=== PATIENT | male | born 1980 | race Caucasian/White ===

== ENCOUNTER → 2022-08-09 | Outpatient (CLI) | payer OTHER ==
[2022-08-09 18:30] LABS: Basophils # (A) 0.07 X 10*3/uL (0.00-0.10); Basophils % (A) 0.7 %; Eosinophils % (A) 7.3 %; HCT 41.9 % (39.6-50.0); HGB 14.1 g/dL (13.0-17.0); Immature Grans, Automated 0.2 %; Lymphocytes # (A) 2.09 X 10*3/uL (0.90-5.00); Lymphocytes % (A) 21.7 %; MCHC 33.7 g/dL (32.0-37.0); MCV 95.2 fL (80.0-97.0); Mean Platelet Volume 9.5 fL (9.5-12.2); Monocytes # (A) 0.56 X 10*3/uL (0.20-1.00); Monocytes % (A) 5.8 %; NRBC Per 100 WBC 0 /100 WBCS (0.0-0.0); Neutrophils # (A) 6.18 X 10*3/uL (1.80-7.70); Neutrophils % (A) 64.3 %; Platelet Count 337 X 10*3/uL (140-440); RDW 12.7 % (11.5-14.5); WBC 9.62 X 10*3/uL (4.50-10.00)
[2022-08-09 19:54] LABS: ALT 24 U/L (10-49); AST 17 U/L (14-35); Albumin 4.8 g/dL (3.8-4.9); Albumin/Globulin Ratio 2.09 (1.60-3.17); Alkaline Phosphatase 91 U/L (41-126); BUN/Creat Ratio 8.33 Ratio (12.00-20.00); Blood Urea Nitrogen 7.5 mg/dL (9.0-27.0); Carbon Dioxide 26.7 mmol/L (20.0-27.5); Chloride 100 mmol/L (96-109); Chol/HDL Ratio 3.64 Ratio; Globulin 2.3 g/dL (1.6-3.3); Glucose 91 mg/dL (70-110); LDL Cholesterol,Calculated 134.6 mg/dL (0.0-131.0); Non-African American GFR(CKD) 103.5 (60.0-200.0); Potassium 4.1 mmol/L (3.5-5.5); Sodium 140 mmol/L (135-145); Total Bilirubin <0.15 mg/dL (0.30-1.20); Total Protein 7.1 g/dL (6.2-8.2)
[2022-08-09 22:33] LABS: Urine Alcohol Negative (Negative); Urine Barbiturate Negative (Negative); Urine Cocaine Negative (Negative); Urine Methadone Negative (Negative); Urine Opiates Negative (Negative); Urine Phencyclidine Negative (Negative)
== END | disposition home or self-care (01) ==
LOC: LABWHC1 12:05
PROVIDERS: ATTEND Specialist
DX: Z79.899 Other long term (current) drug therapy (principal)
CPT/HCPCS: 36415; 80053; 80061; 80306; 83036; 84443; 85025

== ENCOUNTER 2023-07-08 15:07 | Observation (INO) | payer OTHER ==
[2023-07-08] MEDS ORDERED: SODIUM CHLORIDE 0.9% 500 ML 500 ML IV ONE (15:16)
[2023-07-08] MEDS ORDERED: SODIUM CHLORIDE 0.9% 1,000 ML IV STA (15:16)
--- NOTE | 2023-07-08 15:33 | ED ---
Altered Mental Status HPI - General Chief Complaint: Altered Mental Status Stated Complaint: Altered Mental Status Time Seen by Provider: 07/08/23 15:09 Source: patient, family, EMS, RN notes reviewed Mode of arrival: EMS Limitations: altered mental status - History of Present Illness Initial Comments: 43-year-old male with a history of bipolar and schizophrenia who is brought in by EMS due to confusion and altered mental status. He apparently is been [place] Unclear at this time he lives her. He denies any pain he however does not know what day it is what month it is or what year it is at this time. He denies alcohol he does admit to vaping using marijuana. He does admit to using psychiatric medications. No desire to hurt himself or anyone else apparently. He has no other complaints at this time. The patient and did come back to see the patient she is 1 called EMS to bring him in here. Patient was [place] to the aunt owns he was confused as to date and time and year which is not normal for him. He also seemed more confused on other aspects of questioning. There is a possibility he did not have his medications for some period of time he just got a prescription filled the last 1 or 2 days. He does have a history of alcoholism but no recent history of drinking. The patient's aunt believes he is possibly demonstrating some withdrawal-type. Additional information the patient's aunt does state that he had episodes of nausea vomiting yesterday. None today MD Complaint: altered mental status - Related Data Home Medications Medication Instructions Recorded Confirmed FLUoxetine HCL [PROzac] 80 mg PO DAILY 07/08/23 07/08/23 [place] Carbonate [Lithobid] 600 mg PO HS 07/08/23 07/08/23 QUEtiapine FUMARATE [SEROquel XR] 800 mg PO HS 07/08/23 07/08/23 QUEtiapine [SEROquel] 50 mg PO DAILY PRN 07/08/23 07/08/23 busPIRone HCL 20 mg PO TID 07/08/23 07/08/23 cloNIDine HCL [Catapres] 0.1 mg PO DAILY PRN 07/08/23 07/08/23 cloNIDine HCL [Kapvay] 0.2 mg PO HS 07/08/23 07/08/23 Allergies Allergy/AdvReac Type Severity Reaction Status Date / Time erythromycin base AdvReac Nausea & Verified 07/08/23 18:33 [From Erythrocin] Vomiting Review of Systems ROS Statement: Those systems with pertinent positive or pertinent negative responses have been documented in the HPI. ROS Other: All systems not noted in ROS Statement are negative. Past Medical History Past Medical History: No Reported History History of Any Multi-Drug Resistant Organisms: None Reported Past Surgical History: No Surgical Hx Reported Past Psychological History: Anxiety, Depression Smoking Status: Vaper Past Alcohol Use History: None Reported Past Drug Use History: Marijuana General Exam - General Exam Comments Initial Comments: This a well-developed well-nourished awake alert confused male Limitations: altered mental status General appearance: alert, in no apparent distress Head exam: Present: atraumatic, normocephalic, normal inspection Eye exam: Present: normal appearance, PERRL, EOMI. Absent: scleral icterus, conjunctival injection, periorbital swelling ENT exam: Present: mucous membranes dry Neck exam: Present: normal inspection, full ROM, other (No stridor JVD or bruits). Absent: tenderness, meningismus, lymphadenopathy Respiratory exam: Present: normal lung sounds bilaterally. Absent: respiratory distress, wheezes, rales, rhonchi, stridor Cardiovascular Exam: Present: regular rate, normal rhythm, normal heart sounds. Absent: systolic murmur, diastolic murmur, rubs, gallop, clicks GI/Abdominal exam: Present: soft, normal bowel sounds. Absent: distended, tenderness, guarding, rebound, rigid Rectal exam: Present: deferred Extremities exam: Present: full ROM, normal capillary refill, other (Very subtle bruised areas seen on the right antecubital space no open wound seen no definitive puncture wounds). Absent: tenderness, pedal edema, joint swelling, calf tenderness Back exam: Present: normal inspection Neurological exam: Present: alert, altered, CN II-XII intact. Absent: motor sensory deficit Psychiatric exam: Present: normal affect, normal mood Skin exam: Present: warm, dry, intact, normal color. Absent: rash Course Vital Signs 07/08/23 07/08/23 15:12 18:44 Temperature 98.3 F Pulse Rate 78 75 Respiratory 18 18 Rate Blood Pressure 147/108 149/90 O2 Sat by Pulse 98 98 Oximetry Medical Decision Making - Medical Decision Making I did discuss findings with the patient his mother and his aunt who was here earlier. Evaluation treatment of altered mental status lithium toxicity and dehydration. Patient does demonstrate evidence of hyperglycemia hypothyroidism medication may be the culprit. Patient be also seen by psychiatry and also by neurology. Also oral surgery will be placed on IV antibioticsWas pt. sent in by a medical professional or institution (, DIANE, UNDERWRITING MANAGER, urgent care, hospital, or longterm...) When possible be specific @ -No Did you speak to anyone other than the patient for history (EMS, parent, family, police, friend...)? What history was obtained from this source @ -His aunt and his mother Did you review nursing and triage notes (agree or disagree)? Why? @ -I reviewed and agree with nursing and triage notes Were old charts reviewed (outside hosp., previous admission, EMS record, old EKG, old radiological studies, urgent care reports/EKG's, longterm records)? Report findings @ -No old charts were reviewed Differential Diagnosis (chest pain, altered mental status, abdominal pain women, abdominal pain men, vaginal bleeding, weakness, fever, dyspnea, syncope, headache, dizziness, GI bleed, back pain, seizure, CVA, palpatations, mental health, musculoskeletal)? @ -CVA, altered mental status, lithium toxicity, dehydration EKG interpreted by me (3pts min.). @ -As above EKG interpreted by me sinus rhythm a 78 PA interval 139 QRS duration 97 QT/QTc 411/444 nonspecific T-wave configuration X-rays interpreted by me (1pt min.). @ -Chest x-ray. Interpreted by me no acute process CT interpreted by me (1pt min.). @ -Interpreted by me no acute findings U/S interpreted by me (1pt. min.). @ -None done What testing was considered but not performed or refused? (CT, X-rays, U/S, labs)? Why? @ -None What meds were considered but not given or refused? Why? @ -None Did you discuss the management of the patient with other professionals (professionals i.e. , DIANE, UNDERWRITING MANAGER, lab, RT, psych nurse, social welfare administrator, pathologist assistant, teacher, weapons officer, case operator)? Give summary @ -Roxana covering for Dr. Deshpande on city call Was smoking cessation discussed for >3mins.? @ -No Was critical care preformed (if so, how long)? @ -31 minutes Were there social determinants of health that impacted care today? How? (Homelessness, low income, unemployed, alcoholism, drug addiction, transportation, low edu. Level, literacy, decrease access to med. care, shelter, rehab)? @ -No Was there de-escalation of care discussed even if they declined (Discuss DNR or withdrawal of care, Hospice)? DNR status @ -No What co-morbidities impacted this encounter? (DM, HTN, Smoking, COPD, CAD, Cancer, CVA, ARF, Chemo, Hep., AIDS, mental health diagnosis, sleep apnea, morbid obesity)? @ -BiPolar disorder, schizophrenia] Was patient admitted / discharged? Hospital course, mention meds given and route, prescriptions, significant lab abnormalities, going to OR and other pertinent info. @ -hospital course patient was admitted to this facility for inpatient evaluation Undiagnosed new problem with uncertain prognosis? @ -Left upper molar dental infection, dehydration altered mental status lithium toxicity Drug Therapy requiring intensive monitoring for toxicity (Heparin, Nitro, In sulin, Cardizem)? @ -No Were any procedures done? @ -No Diagnosis/symptom? @ -default altered mental status, lithium toxicity, dehydration, dental infection, acute kidney injury Acute, or Chronic, or Acute on Chronic? @ -Acute Uncomplicated (without systemic symptoms) or Complicated (systemic symptoms)? @ -default Side effects of treatment? @ -No Exacerbation, Progression, or Severe Exacerbation? @ -No Poses a threat to life or bodily function? How? (Chest pain, [place], [place], pneumonia, PE, COPD, DKA, ARF, appy, cholecystitis, CVA, Diverticulitis, Homicidal, Suicidal, threat to staff... and all critical care pts) @ -Altered mental status - Lab Data Result diagrams: 07/08/23 15:31 07/08/23 15:31 Lab Results 07/08/23 07/08/23 07/08/23 Range/Units 15:31 15:31 15:31 WBC 22.7 H (3.8-10.6) k/uL RBC 4.82 (4.30-5.90) m/uL Hgb 15.6 (13.0-17.5) gm/dL Hct 46.4 (39.0-53.0) % MCV 96.4 (80.0-100.0) fL MCH 32.3 (25.0-35.0) pg MCHC 33.5 (31.0-37.0) g/dL RDW 13.0 (11.5-15.5) % Plt Count 410 (150-450) k/uL MPV 7.6 Neutrophils % 91 % Lymphocytes % 5 % Monocytes % 4 % Eosinophils % 0 % Basophils % 0 % Neutrophils # 20.6 H (1.3-7.7) k/uL Lymphocytes # 1.1 (1.0-4.8) k/uL Monocytes # 0.8 (0-1.0) k/uL Eosinophils # 0.1 (0-0.7) k/uL Basophils # 0.0 (0-0.2) k/uL PT 11.0 (10.0-12.5) sec INR 1.0 (<1.2) APTT 23.5 (22.0-30.0) sec Sodium (137-145) mmol/L Potassium (3.5-5.1) mmol/L Chloride (98-107) mmol/L Carbon Dioxide (22-30) mmol/L Anion Gap mmol/L BUN (9-20) mg/dL Creatinine (0.66-1.25) mg/dL Est GFR (CKD-EPI)AfAm (>60 ml/min/1.73 sqM) Est GFR (CKD-EPI)NonAf (>60 ml/min/1.73 sqM) Glucose (74-99) mg/dL Calcium (8.4-10.2) mg/dL Magnesium (1.6-2.3) mg/dL Total Bilirubin (0.2-1.3) mg/dL AST (17-59) U/L ALT (4-49) U/L Alkaline Phosphatase (38-126) U/L Ammonia (<30) umol/L Creatine Kinase (55-170) U/L Troponin I (0.000-0.034) ng/mL Total Protein (6.3-8.2) g/dL Albumin (3.5-5.0) g/dL TSH (0.465-4.680) mIU/L Free T4 (0.78-2.19) ng/dL Urine Color Light [place] Urine Appearance Cloudy (Clear) Urine pH 6.0 (5.0-8.0) Ur Specific [place] 1.028 (1.001-1.035) Urine Protein 2+ H (Negative) Urine Glucose (UA) Trace H (Negative) Urine Ketones 1+ H (Negative) Urine Blood Small H (Negative) Urine Nitrite Negative (Negative) Urine Bilirubin 1+ H (Negative) Urine Urobilinogen 3.0 (<2.0) mg/dL Ur Leukocyte Esterase Negative (Negative) Urine RBC 2 (0-5) /hpf Urine WBC 7 H (0-5) /hpf Hyaline Casts 16 H (0-2) /lpf Urine Mucus Many H (None) /hpf Urine Opiates Screen Not Detected (NotDetected) Ur Oxycodone Screen Not Detected (NotDetected) Urine Methadone Screen Not Detected (NotDetected) Ur Propoxyphene Screen Not Detected (NotDetected) Ur Barbiturates Screen Not Detected (NotDetected) U Tricyclic Antidepress Detected H (NotDetected) Ur Phencyclidine Scrn Not Detected (NotDetected) Ur Amphetamines Screen Not Detected (NotDetected) U Methamphetamines Scrn Not Detected (NotDetected) U Benzodiazepines Scrn Detected H (NotDetected) [place] mmol/L Urine Cocaine Screen Not Detected (NotDetected) U Marijuana (THC) Screen Detected H (NotDetected) Serum Alcohol mg/dL 07/08/23 07/08/23 07/08/23 Range/Units 15:31 15:31 15:31 WBC (3.8-10.6) k/uL RBC (4.30-5.90) m/uL Hgb (13.0-17.5) gm/dL Hct (39.0-53.0) % MCV (80.0-100.0) fL MCH (25.0-35.0) pg MCHC (31.0-37.0) g/dL RDW (11.5-15.5) % Plt Count (150-450) k/uL MPV Neutrophils % % Lymphocytes % % Monocytes % % Eosinophils % % Basophils % % Neutrophils # (1.3-7.7) k/uL Lymphocytes # (1.0-4.8) k/uL Monocytes # (0-1.0) k/uL Eosinophils # (0-0.7) k/uL Basophils # (0-0.2) k/uL PT (10.0-12.5) sec INR (<1.2) APTT (22.0-30.0) sec Sodium 136 L (137-145) mmol/L Potassium 4.4 (3.5-5.1) mmol/L Chloride 96 L (98-107) mmol/L Carbon Dioxide 21 L (22-30) mmol/L Anion Gap 19 mmol/L BUN 14 (9-20) mg/dL Creatinine 1.37 H (0.66-1.25) mg/dL Est GFR (CKD-EPI)AfAm 72 (>60 ml/min/1.73 sqM) Est GFR (CKD-EPI)NonAf 62 (>60 ml/min/1.73 sqM) Glucose 222 H (74-99) mg/dL Calcium 10.4 H (8.4-10.2) mg/dL Magnesium 2.5 H (1.6-2.3) mg/dL Total Bilirubin 1.1 (0.2-1.3) mg/dL AST 44 (17-59) U/L ALT 51 H (4-49) U/L Alkaline Phosphatase 145 H (38-126) U/L Ammonia <9 (<30) umol/L Creatine Kinase (55-170) U/L Troponin I <0.012 (0.000-0.034) ng/mL Total Protein 8.5 H (6.3-8.2) g/dL Albumin 5.2 H (3.5-5.0) g/dL TSH 7.890 H (0.465-4.680) mIU/L Free T4 1.12 (0.78-2.19) ng/dL Urine Color Urine Appearance (Clear) Urine pH (5.0-8.0) Ur Specific [place] (1.001-1.035) Urine Protein (Negative) Urine Glucose (UA) (Negative) Urine Ketones (Negative) Urine Blood (Negative) Urine Nitrite (Negative) Urine Bilirubin (Negative) Urine Urobilinogen (<2.0) mg/dL Ur Leukocyte Esterase (Negative) Urine RBC (0-5) /hpf Urine WBC (0-5) /hpf Hyaline Casts (0-2) /lpf Urine Mucus (None) /hpf Urine Opiates Screen (NotDetected) Ur Oxycodone Screen (NotDetected) Urine Methadone Screen (NotDetected) Ur Propoxyphene Screen (NotDetected) Ur Barbiturates Screen (NotDetected) U Tricyclic Antidepress (NotDetected) Ur Phencyclidine Scrn (NotDetected) Ur Amphetamines Screen (NotDetected) U Methamphetamines Scrn (NotDetected) U Benzodiazepines Scrn (NotDetected) [place] 2.2 H* mmol/L Urine Cocaine Screen (NotDetected) U Marijuana (THC) Screen (NotDetected) Serum Alcohol <10 mg/dL 07/08/23 Range/Units 15:31 WBC (3.8-10.6) k/uL RBC (4.30-5.90) m/uL Hgb (13.0-17.5) gm/dL Hct (39.0-53.0) % MCV (80.0-100.0) fL MCH (25.0-35.0) pg MCHC (31.0-37.0) g/dL RDW (11.5-15.5) % Plt Count (150-450) k/uL MPV Neutrophils % % Lymphocytes % % Monocytes % % Eosinophils % % Basophils % % Neutrophils # (1.3-7.7) k/uL Lymphocytes # (1.0-4.8) k/uL Monocytes # (0-1.0) k/uL Eosinophils # (0-0.7) k/uL Basophils # (0-0.2) k/uL PT (10.0-12.5) sec INR (<1.2) APTT (22.0-30.0) sec Sodium (137-145) mmol/L Potassium (3.5-5.1) mmol/L Chloride (98-107) mmol/L Carbon Dioxide (22-30) mmol/L Anion Gap mmol/L BUN (9-20) mg/dL Creatinine (0.66-1.25) mg/dL Est GFR (CKD-EPI)AfAm (>60 ml/min/1.73 sqM) Est GFR (CKD-EPI)NonAf (>60 ml/min/1.73 sqM) Glucose (74-99) mg/dL Calcium (8.4-10.2) mg/dL Magnesium (1.6-2.3) mg/dL Total Bilirubin (0.2-1.3) mg/dL AST (17-59) U/L ALT (4-49) U/L Alkaline Phosphatase (38-126) U/L Ammonia (<30) umol/L Creatine Kinase 145 (55-170) U/L Troponin I (0.000-0.034) ng/mL Total Protein (6.3-8.2) g/dL Albumin (3.5-5.0) g/dL TSH (0.465-4.680) mIU/L Free T4 (0.78-2.19) ng/dL Urine Color Urine Appearance (Clear) Urine pH (5.0-8.0) Ur Specific [place] (1.001-1.035) Urine Protein (Negative) Urine Glucose (UA) (Negative) Urine Ketones (Negative) Urine Blood (Negative) Urine Nitrite (Negative) Urine Bilirubin (Negative) Urine Urobilinogen (<2.0) mg/dL Ur Leukocyte Esterase (Negative) Urine RBC (0-5) /hpf Urine WBC (0-5) /hpf Hyaline Casts (0-2) /lpf Urine Mucus (None) /hpf Urine Opiates Screen (NotDetected) Ur Oxycodone Screen (NotDetected) Urine Methadone Screen (NotDetected) Ur Propoxyphene Screen (NotDetected) Ur Barbiturates Screen (NotDetected) U Tricyclic Antidepress (NotDetected) Ur Phencyclidine Scrn (NotDetected) Ur Amphetamines Screen (NotDetected) U Methamphetamines Scrn (NotDetected) U Benzodiazepines Scrn (NotDetected) [place] mmol/L Urine Cocaine Screen (NotDetected) U Marijuana (THC) Screen (NotDetected) Serum Alcohol mg/dL - EKG Data -: EKG Interpreted by Me EKG Comments: EKG interpreted by me sinus rhythm a 78. PA interval 139 QRS duration 97 QT since QTC 4 low/444 nonspecific T-wave configuration - Radiology Data Interpreted by me: I didn't interpret the imaging CT and chest x-ray negative acute findings on both of them. Critical Care Time Critical Care Time: Yes Total Critical Care Time: 31 Disposition Clinical Impression: Altered mental status, [place] toxicity, Dehydration, Dental infection, Leukocytosis, Acute kidney injury Disposition: ADMITTED IP TO THIS HOSP Condition: Fair Referrals: [facility] [NON-STAFF] - 1-2 days Decision Date: 07/08/23 Decision Time: 19:30
[2023-07-08 15:47] LABS: Basophils % (A) 0 %; Eosinophils # (A) 0.1 k/uL (0-0.7); Eosinophils % (A) 0 %; HCT 46.4 % (39.0-53.0); HGB 15.6 gm/dL (13.0-17.5); Lymphocytes # (A) 1.1 k/uL (1.0-4.8); Lymphocytes % (A) 5 %; MCH 32.3 pg (25.0-35.0); MCHC 33.5 g/dL (31.0-37.0); MCV 96.4 fL (80.0-100.0); Mean Platelet Volume 7.6; Monocytes # (A) 0.8 k/uL (0-1.0); Monocytes % (A) 4 %; Neutrophils # (A) 20.6 k/uL (1.3-7.7); Neutrophils % (A) 91 %; Platelet Count 410 k/uL (150-450); RBC 4.82 m/uL (4.30-5.90); WBC 22.7 k/uL (3.8-10.6)
[2023-07-08 15:58] LABS: ALT 51 U/L (4-49); AST 44 U/L (17-59); African American GFR (CKD) 72 (>60 ml/min/1.73 sqM); Albumin 5.2 g/dL (3.5-5.0); Alcohol <10 mg/dL; Alkaline Phosphatase 145 U/L (38-126); Anion Gap 19 mmol/L; Blood Urea Nitrogen 14 mg/dL (9-20); Calcium 10.4 mg/dL (8.4-10.2); Carbon Dioxide 21 mmol/L (22-30); Chloride 96 mmol/L (98-107); Glucose 222 mg/dL (74-99); Magnesium 2.5 mg/dL (1.6-2.3); Non-African American GFR(CKD) 62 (>60 ml/min/1.73 sqM); Potassium 4.4 mmol/L (3.5-5.1); Sodium 136 mmol/L (137-145); Total Bilirubin 1.1 mg/dL (0.2-1.3); Total Protein 8.5 g/dL (6.3-8.2)
[2023-07-08 16:01] LABS: Partial Thromboplastin Time 23.5 sec (22.0-30.0)
[2023-07-08 16:53] LABS: Lithium 2.2 mmol/L
--- NOTE | 2023-07-08 16:53 | XR ---
EXAMINATION TYPE: XR chest 2V DATE OF EXAM: 07/08/2023 COMPARISON: NONE HISTORY: Altered mental status TECHNIQUE: Frontal and lateral views of the chest are obtained. FINDINGS: There is no focal air space opacity, pleural effusion, or pneumothorax seen. The cardiac silhouette size is within normal limits. The osseous structures are intact. IMPRESSION: No acute cardiopulmonary process.
--- NOTE | 2023-07-08 16:53 | CT ---
EXAMINATION TYPE: CT brain wo con DATE OF EXAM: 07/08/2023 COMPARISON: None HISTORY: Altered mental status CT DLP: 1202.4 mGycm. Automated Exposure Control for Dose Reduction was Utilized. TECHNIQUE: CT scan of the head is performed without contrast. FINDINGS: There is no acute intracranial hemorrhage, mass effect, or midline shift identified. The ventricles and sulci are within normal limits in size. The globes are intact and the visualized sin uses are clear. IMPRESSION: No acute intracranial hemorrhage, mass effect, or midline shift is seen.
[2023-07-08 17:13] LABS: T4, Free (Free Thyroxine) 1.12 ng/dL (0.78-2.19)
[2023-07-08 18:48] LABS: Appearance,Urine Cloudy (Clear); Bilirubin,Urine 1+ (Negative); Blood,Urine Small (Negative); Color,Urine Light Orange; Glucose,Urine (UA) Trace (Negative); Hyaline Casts,Urine 16 /lpf (0-2); Ketones,Urine 1+ (Negative); Leukocyte Esterase,Urine Negative (Negative); Mucus,Urine Many /hpf; Nitrite,Urine Negative (Negative); Protein,Urine 2+ (Negative); RBC,Urine 2 /hpf (0-5); Specific Gravity,Urine 1.028 (1.001-1.035); WBC,Urine 7 /hpf (0-5)
[2023-07-08 18:55] LABS: Amphetamine Screen,Urine Not Detected (NotDetected); Barbiturate Screen,Urine Not Detected (NotDetected); Benzodiazepines Screen,Urine Detected (NotDetected); Cocaine Screen,Urine Not Detected (NotDetected); Methadone Screen, Urine Not Detected (NotDetected); Opiate Screen,Urine Not Detected (NotDetected); Oxycodone Screen, Urine Not Detected (NotDetected); Phencyclidine Screen,Urine Not Detected (NotDetected); Tricyclic Antidepressant,Urine Detected (NotDetected); Urn Cannabinoid Scrn Detected (NotDetected)
[2023-07-08] MEDS ORDERED: ONDANSETRON 4 MG/2 ML VIAL IVP PRN (20:05)
[2023-07-08] MEDS ORDERED: NALOXONE 0.4 MG/ML 1 ML VIAL IV PRN (20:05)
[2023-07-08] MEDS ORDERED: cloNIDine HCL 0.1 MG TAB PO PRN (20:07)
[2023-07-08] MEDS ORDERED: QUEtiapine 50 MG TAB PO PRN (20:07)
[2023-07-08] MEDS: ACETAMINOPHEN TAB 325 MG TAB PO PRN (21:03)
[2023-07-08] MEDS: cloNIDine HCL 0.2 MG TAB PO SCH (21:04)
[2023-07-08] MEDS: QUEtiapine 400 MG TAB PO SCH (21:05)
[2023-07-08] MEDS: SODIUM CHLORIDE 0.9% 1,000 ML IV SCH (22:31)
[2023-07-08] MEDS: busPIRone HCl 10 MG TAB PO SCH (22:31)
[2023-07-09] MEDS: SODIUM CHLORIDE 0.9% 1,000 ML IV SCH ×3 (05:39→21:33)
[2023-07-09 05:44] LABS: Glucose,Whole Blood 100 mg/dL (70-110)
[2023-07-09] MEDS: HEPARIN SODIUM,PORCINE 5,000 UNIT/ML 1 ML VIAL SQ SCH ×2 (08:18→21:42)
[2023-07-09] MEDS: FLUoxetine HCL 20 MG CAP PO SCH (08:18)
[2023-07-09] MEDS: QUEtiapine 400 MG TAB PO SCH (08:18)
[2023-07-09] MEDS: busPIRone HCl 10 MG TAB PO SCH ×3 (08:18→21:33)
[2023-07-09 10:50] LABS: Basophils % (A) 0 %; Eosinophils # (A) 0.5 k/uL (0-0.7); Eosinophils % (A) 4 %; HCT 39.4 % (39.0-53.0); HGB 13.4 gm/dL (13.0-17.5); Lymphocytes # (A) 1.3 k/uL (1.0-4.8); Lymphocytes % (A) 9 %; MCH 32.7 pg (25.0-35.0); MCV 96.1 fL (80.0-100.0); Monocytes # (A) 0.7 k/uL (0-1.0); Monocytes % (A) 5 %; Neutrophils # (A) 11.2 k/uL (1.3-7.7); Neutrophils % (A) 80 %; Platelet Count 223 k/uL (150-450); RDW 13.4 % (11.5-15.5)
[2023-07-09 11:03] LABS: ALT 54 U/L (4-49); AST 46 U/L (17-59); African American GFR (CKD) >90 (>60 ml/min/1.73 sqM); Albumin 4.2 g/dL (3.5-5.0); Albumin/Globulin Ratio 1.6; Alkaline Phosphatase 102 U/L (38-126); Anion Gap 11 mmol/L; Blood Urea Nitrogen 12 mg/dL (9-20); Calcium 9.3 mg/dL (8.4-10.2); Carbon Dioxide 20 mmol/L (22-30); Chloride 102 mmol/L (98-107); Globulin 2.7 g/dL; Glucose 115 mg/dL (74-99); Non-African American GFR(CKD) >90 (>60 ml/min/1.73 sqM); Sodium 133 mmol/L (137-145); Total Bilirubin 0.8 mg/dL (0.2-1.3); Total Protein 6.9 g/dL (6.3-8.2)
[2023-07-09 11:19] LABS: Glucose,Whole Blood 116 mg/dL (70-110)
[2023-07-09] MEDS: ACETAMINOPHEN TAB 325 MG TAB PO PRN ×2 (11:35→17:53)
--- NOTE | 2023-07-09 13:04 | P.CN ---
Psychiatric Consult - . Consult date: 07/09/23 Consult:: 07/09/23 12:51 IDENTIFYING DATA: This patient is a 43 yo male, currently lives in a mobile home, , has two kids, unemployed REASON FOR REFERRAL: Psychiatry was consulted for ams, hx bipolar schizophrenia, lithium tox HISTORY OF PRESENT ILLNESS: The patient presented to the hospital yesterday via EMS for confusion and altered mental status, currently was wandering and disoriented. Patient had a computed tomography scan of his brain which did not show any acute changes. Patient currently has a history of bipolar disorder and schizophrenia. Patient's white count was elevated along with neutrophil count. Patient's urine drug screen was positive for TCAs benzodiazepines and THC. Patient lithium level was 2.2. Patient was seen today laying in bed and was with his mother. Patient's mother was able to speak to keno writer/runner in the hallway to give further information. She states that he was disoriented, fell, was throwing up for coming into the hospital. She states that he was confused. States that he was started on lithium about a month ago and has been on Seroquel for quite some time. She states that he follows up at [facility] however does not know who she follows up with. She does claim that patient is doing a bit better today and more awake however is still confused. Patient was seen today by keno writer/runner and he was laying in bed. Patient appeared to be fairly confused during conversation. He claims that he is doing "a bit better". He states that he does not know how long he was "out of it" for. He states he has been taking his medications regularly, admits to possibly not drinking enough fluid. States th at he is denying any depression or anxiety at this time. He knew the correct year however does not know the correct day or month and does not know the correct season. He knew his full name and his date of , he knew that he was Kristan Arriola. He has fairly limited insight and judgment at this time. States that his sleep is poor about 3-4 hours a night, states that his appetite is fair. At this time patient denies any suicidal or homical ideations, intent or plan. Patient denies any auditory, visual hallucinations and denies any paranoia or delusions. Patients admits to using marijuana frequently about a half an ounce a week. States that he vapes nicotine. denies any other rec drug use. PAST PSYCHIATRIC HISTORY: Patient has a a history of bipolar disorder and apparently schizophrenia. Patient is currently on Lithobid, BuSpar, Seroquel and clonidine along with Prozac. Patient apparently was last admitted to the mental health unit in [place] about 2 years ago and has had several admissions prior to that. Patient apparently follows up at [facility] in [facility]. Apparently patient had episodes of cutting when he was a teenager. PAST MEDICAL HISTORY: Past Medical History: No Reported History History of Any Multi-Drug Resistant Organisms: None Reported Past Surgical History: No Surgical Hx Reported Past Psychological History: Anxiety, Depression Smoking Status: Vaper Past Alcohol Use History: None Reported Past Drug Use History: Marijuana. ALLERGIES: as per EMR. CHEMICAL DEPENDENCY HISTORY: as per HPI. FAMILY PSYCHIATRIC/SUBSTANCE USE HISTORY: Apparently patient's grandmother and aunt both had severe mental illness likely schizophrenia SOCIAL HISTORY: Patient was born and raised in [facility] [place] [facility], states that he completed high school and did some college. States that he did go to group home for drug-related issues several years ago. He has 2 kids, he is unemployed. He is also . He lives in a mobile home alone. MENTAL STATUS EXAM: General Appearance: Patient appears to be thin, unshaven, stated age is alert, confused at times however times to cooperate. Patient appears to have fair hygiene and grooming wearing hospital gown with fair eye contact. Behavior: Patient is calmly lying in bed without any agitated behavior. Somewhat confused. Speech: Patient's speech is fluent and nonpressured. Hesitant Mood/Affect: Patient reports their mood is "better", affect is congruent and constricted Suicidality/Homicidality: Patient denies having any suicidal or homicidal ideation intent or plan. Perceptions: Patient denies any visual hallucinations and denies any auditory hallucinations Though content/process: There is no evidence of any delusional thought content and thought process is linear and goal-directed. [place]. Vague Memory and concentration: AOX2, does not know todays date, poor attention span. Cannot spell "WORLD" backwards Judgment and insight: poor/impaired IMPRESSIONS: Delirium secondary to lithium toxicity and dehydration schizoaffective disorder cannabis use disorder nicotine dependence PLAN: -At this time patient DOES NOT meet criteria for inpatient psychiatric admission currently however will continue to follow along to see if he will need inpatient psych admission. -Delirium precautions recommended with patient including - avoiding use of narcotics and FIELD MANAGER sedatives, limit anticholinergic medications when possible, frequent re-orientation, minimize use of restraints, open window shades during the day and close them at night -Would recommend the following medication changes/additions: Discontinue Lithobid as patient would be at risk for possible overdose or repeat dehydration and rehospitalization. Start depakote er 1000 mg qhs for mood stabilization. continue with prozac and clonidine as home dose. changed/decreased dose of seroquel down to 600 mg qhs for mood stabilization/insomnia. -check lithium level tomorrow am. -patient will need a follow up appt at [facility] within 1-2 weeks at [facility] upon [facility] -Telegraphic Typewriter Installer spoke with patient about substance abuse and the harmful effects on medical and mental health, patient verbally understood and agreed. -Communicated plan to patient's nurse -Will continue to follow along as needed, continue with treatment of underlying medical illness -Please contact with any questions.
--- NOTE | 2023-07-09 13:25 | P.HPIM ---
History of Present Illness H&P Date: 07/09/23 History of present illness; patient is a 43-year-old gentleman with past medical history significant for bipolar disorder and schizophrenia brought to the ER for confusion. History is limited, most of it is obtained from electronic medical records. According to that patient was [place] Patient was very confused, generally about day and month and what was he doing. Patient history of prior schizophrenia not sure about the patient being compliant with his medication, last prescription filled was a few days back. Denied any auditory or visual hallucinations. No complain of fever or chills. Initial lab work done in the ER showed WBC 22.7, hemoglobin 15.6, platelet count 410, sodium 136, potassium 4.4, BUN 14, creatinine 1.37 magnesium 2.5, calcium 10.4, albumin 5.2, TSH 7.8 UA negative for nitrites, negative for leukocyte esterase, no evidence of infection Urine drug screen positive for tricyclic antidepressants, marijuana CT brain negative for any acute intracranial hemorrhage Chest x-ray showed no acute cardiopulmonary process Patient admitted to medicine service REVIEW OF SYSTEMS: CONSTITUTIONAL: No fever, no malaise, no fatigue. HEENT: No recent visual problems or hearing problems. Denied any sore throat. CARDIOVASCULAR: No chest pain, orthopnea, PND, no palpitations, no syncope. PULMONARY: No shortness of breath, no cough, no hemoptysis. GASTROINTESTINAL: No diarrhea, no nausea, no vomiting, no abdominal pain. NEUROLOGICAL: No headaches, no weakness, no numbness. HEMATOLOGICAL: Denies any bleeding or petechiae. GENITOURINARY: Denies any burning micturition, frequency, or urgency. MUSCULOSKELETAL/RHEUMATOLOGICAL: Denies any joint pain, swelling, or any muscle pain. ENDOCRINE: Denies any polyuria or polydipsia. The rest of the 14-point review of systems is negative. PHYSICAL EXAMINATION: GENERAL: The patient is alert and oriented x3, not in any acute distress. Well developed, well nourished. HEENT: Pupils are round and equally reacting to light. EOMI. No scleral icterus. No conjunctival pallor. Normocephalic, atraumatic. No pharyngeal erythema. No thyromegaly. CARDIOVASCULAR: S1 and S2 present. No murmurs, rubs, or gallops. PULMONARY: Chest is clear to auscultation, no wheezing or crackles. ABDOMEN: Soft, nontender, nondistended, normoactive bowel sounds. No palpable organomegaly. MUSCULOSKELETAL: No joint swelling or deformity. Laceration on left knee, slight erythema noticeable EXTREMITIES: No cyanosis, clubbing, or pedal edema. NEUROLOGICAL: Gross neurological examination did not reveal any focal deficits. Restless, tremors noticeable SKIN: No rashes. Assessment and plan Acute metabolic encephalopathy Acute kidney injury Left knee laceration Cellulitis left amezcua Elevated lithium levels Cellulitis Schizophrenia Bipolar disorder Monitor vital signs Monitor CBC Monitor CMP Continue IV fluids continue IV cefazolin Consult ID Consult psychiatry Consult neurology Labs and medication were reviewed.. Continue same treatment. Continue with symptomatic treatment. Resume home medication. Monitor labs and vitals. DVT and GI prophylaxis. Further recommendations as per clinical course of the patient Dictation was produced using [employer] dictation software. please excuse any grammatical, word or spelling errors. Past Medical History Past Medical History: No Reported History History of Any Multi-Drug Resistant Organisms: None Reported Past Surgical History: Tonsillectomy Past Anesthesia/Blood Transfusion Reactions: No Reported Reaction Past Psychological History: Anxiety, Depression Smoking Status: Vaper Past Alcohol Use History: None Reported Past Drug Use History: Marijuana Medications and Allergies Home Medications Medication Instructions Recorded Confirmed Type FLUoxetine HCL [PROzac] 80 mg PO DAILY 07/08/23 07/08/23 History [place] Carbonate [Lithobid] 600 mg PO HS 07/08/23 07/08/23 History QUEtiapine FUMARATE [SEROquel XR] 800 mg PO HS 07/08/23 07/08/23 History QUEtiapine [SEROquel] 50 mg PO DAILY PRN 07/08/23 07/08/23 History busPIRone HCL 20 mg PO TID 07/08/23 07/08/23 History cloNIDine HCL [Catapres] 0.1 mg PO DAILY PRN 07/08/23 07/08/23 History cloNIDine HCL [Kapvay] 0.2 mg PO HS 07/08/23 07/08/23 History Allergies Allergy/AdvReac Type Severity Reaction Status Date / Time erythromycin base AdvReac Nausea & Verified 07/08/23 18:33 [From Erythrocin] Vomiting Physical Exam Vitals: Vital Signs Temp Pulse Pulse Resp BP BP Pulse Ox 07/09/23 06:53 98.2 F 63 16 127/81 100 07/09/23 00:35 98.0 F 68 18 109/69 97 07/08/23 21:27 98.1 F 69 18 134/82 99 07/08/23 20:16 70 16 130/86 97 07/08/23 18:44 75 18 149/90 98 07/08/23 15:12 98.3 F 78 18 147/108 98 Intake and Output 07/08/23 07/09/23 07/09/23 22:59 06:59 14:59 Other: # Voids 0 Weight 72.575 kg Results CBC & Chem 7: 07/09/23 10:23 07/09/23 10:23 Labs: Abnormal Lab Results - Last 24 Hours (Table) 07/08/23 07/08/23 07/08/23 Range/Units 15:31 15:31 15:31 WBC 22.7 H (3.8-10.6) k/uL Neutrophils # 20.6 H (1.3-7.7) k/uL Sodium 136 L (137-145) mmol/L Chloride 96 L (98-107) mmol/L Carbon Dioxide 21 L (22-30) mmol/L Creatinine 1.37 H (0.66-1.25) mg/dL Glucose 222 H (74-99) mg/dL Calcium 10.4 H (8.4-10.2) mg/dL Magnesium 2.5 H (1.6-2.3) mg/dL ALT 51 H (4-49) U/L Alkaline Phosphatase 145 H (38-126) U/L Total Protein 8.5 H (6.3-8.2) g/dL Albumin 5.2 H (3.5-5.0) g/dL TSH 7.890 H (0.465-4.680) mIU/L Urine Protein 2+ H (Negative) Urine Glucose (UA) Trace H (Negative) Urine Ketones 1+ H (Negative) Urine Blood Small H (Negative) Urine Bilirubin 1+ H (Negative) Urine WBC 7 H (0-5) /hpf Hyaline Casts 16 H (0-2) /lpf Urine Mucus Many H (None) /hpf U Tricyclic Antidepress Detected H (NotDetected) U Benzodiazepines Scrn Detected H (NotDetected) [place] 2.2 H* mmol/L U Marijuana (THC) Screen Detected H (NotDetected) Thrombosis Risk Factor Assmnt - Choose All That Apply Any of the Below Risk Factors Present?: Yes Each Factor Represents 1 point: Age 41-60 years Other Risk Factors: No Other congenital or acquired thrombophilia - If yes, enter type in comment: No Thrombosis Risk Factor Assessment Total Risk Factor Score: 1 Thrombosis Risk Factor Assessment Level: Low Risk
--- NOTE | 2023-07-09 13:29 | P.CNNES ---
History of Present Illness Consult date: 07/09/23 Requesting physician: Leonardo Hagan Reason for Consult: Altered mental status History of Present Illness: Patient is a 43-year-old male came to the hospital by ambulance yesterday at 3:07 PM for confusion. Patient does not know how long he has been confused for. He states that he lives himself. He states his mother would know about how long his has been confused. I tried to call his mother two different times, and she did not order picker/assembler the phone. Patient states that he takes medication by himself. He denies taking excessive amount of medication. He admits to vaping and using marijuana, but denies any alcohol use. As per EMS flow sheet, when they arrived, found patient sitting in the passenger seat office aren't symmetrical. When the patient was approached and asked what was going on, he stated he felt confused, agitated and weak. Patient's aunt stated that she found him outside walking around and was concern for him. Patient's skin was cool to touch with piloerection noted on the patient's arms. Patient's aunt mentioned that he does have schizophrenia and bipolar disorder. Patient mentioned that he takes several medications but could only remember lithium. Patient stated that he has not used any illicit substances other than marijuana. His vital signs at the scene was blood pressure 168/108, pulse rate 91 respiration 12, saturation 98%, blood sugar 122. Blood test with WBC 22.7, hemoglobin 15.6, normal platelets. PT/PTT normal, sodium 136 potassium 4.4, BUN is normal, creatinine 1.37. AST is normal, ALT 51, ammonia normal. Troponin negative. TSH is elevated 17.89 with free T4 normal at 1.12. UA shows minor abnormality. Urine drug screen positive for tricyclics, benzodiazepine and marijuana. Serum lithium level is elevated 2.2, which could be potentially toxic, as severely toxic is > 2.5. CT head revealed no acute intracranial process. I personally reviewed CT head, agree with the findings. Chest x-ray is normal. EKG shows sinus rhythm. Home medications include clonidine, Seroquel XR 800 mg at bedtime, and 50 mg daily, lithium 600 mg at bedtime, Prozac 80 mg, one again 0.1 mg daily when necessary, BuSpar 20 mg 3 times a day. Review of Systems Constitutional: Denies chills, Denies fever Eyes: denies blurred vision, denies diplopia, denies pain Ears: deny: decreased hearing, ear discharge Ears, nose, mouth and throat: Denies headache, Denies sore throat Cardiovascular: Denies chest pain, Denies shortness of breath Respiratory: Denies cough, Denies excessive sputum Gastrointestinal: Denies abdominal pain, Denies diarrhea, Denies nausea, Denies vomiting Genitourinary: Denies dysuria, Denies flank pain, Denies incontinence Musculoskeletal: Denies low back pain, Denies neck pain Integumentary: Denies pruritus, Denies rash Neurological: Reports as per HPI, Denies headaches Psychiatric: Reports anxiety, Reports depression Endocrine: Denies fatigue, Denies weight change Past Medical History Past Medical History: No Reported History History of Any Multi-Drug Resistant Organisms: None Reported Past Surgical History: Tonsillectomy Past Anesthesia/Blood Transfusion Reactions: No Reported Reaction Past Psychological History: Anxiety, Depression Smoking Status: Vaper Past Alcohol Use History: None Reported Past Drug Use History: Marijuana Medications and Allergies Home Medications Medication Instructions Recorded Confirmed Type FLUoxetine HCL [PROzac] 80 mg PO DAILY 07/08/23 07/08/23 History [place] Carbonate [Lithobid] 600 mg PO HS 07/08/23 07/08/23 History QUEtiapine FUMARATE [SEROquel XR] 800 mg PO HS 07/08/23 07/08/23 History QUEtiapine [SEROquel] 50 mg PO DAILY PRN 07/08/23 07/08/23 History busPIRone HCL 20 mg PO TID 07/08/23 07/08/23 History cloNIDine HCL [Catapres] 0.1 mg PO DAILY PRN 07/08/23 07/08/23 History cloNIDine HCL [Kapvay] 0.2 mg PO HS 07/08/23 07/08/23 History Allergies Allergy/AdvReac Type Severity Reaction Status Date / Time erythromycin base AdvReac Nausea & Verified 07/08/23 18:33 [From Erythrocin] Vomiting Physical Examination - Vital Signs Vital Signs: Vital Signs Temp Pulse Pulse Resp BP BP Pulse Ox 07/09/23 06:53 98.2 F 63 16 127/81 100 07/09/23 00:35 98.0 F 68 18 109/69 97 07/08/23 21:27 98.1 F 69 18 134/82 99 07/08/23 20:16 70 16 130/86 97 07/08/23 18:44 75 18 149/90 98 07/08/23 15:12 98.3 F 78 18 147/108 98 Intake and Output 07/08/23 07/09/23 07/09/23 22:59 06:59 14:59 Other: # Voids 0 Weight 72.575 kg Patient is a middle aged male, in no acute distress. Patient is alert awake oriented to time place and person. Patient knows it is [facility] in [place]. He knows name of the current president. He thinks it is March in the year is 2022 but he knows it is a fall season. Speech and language functions are normal. Patient can name and repeat very well. No aphasia or dysarthria. Attention, concentration and fund of k nowledge is adequate. On cranial nerve examination, pupils are equal, round and reacting to light, visual frey are full on confrontation, with no neglect on double simultaneous stimulation. Extraocular muscles are intact with no nystagmus. Face is symmetric, tongue protrudes to the midline. Palatal elevation and sensation normal, hearing and shoulder shrug normal, facial sensation normal. On muscle strength testing, there is no pronator drift and the strength is normal in arms and legs distally and proximally. Deep tendon reflexes are symmetric 2+ to 3 all over in the arms and legs and plantars downgoing bilaterally. Sensory to touch is equal with no neglect on double simultaneous stimulation. Cerebellar function showed no ataxia for [id number] testing. No dysdiadochokinesia. No ataxia for [id number] testing on either side. Tone and bulk of muscles normal. Patient has significant fine tremors of outstretched hands. Patient is slightly shaky all over as well. Gait deferred.. On general examination, there is no carotid bruit or murmur, S1-S2 audible. Chest is clear on consultation. Abdomen is soft nontender. No organomegaly, bowel sounds present. Peripheral pulses are present. No peripheral edema. Results - Laboratory Findings CBC and BMP: 07/09/23 10:23 07/09/23 10:23 Abnormal Lab Findings: Abnormal Labs 07/08/23 07/08/23 07/08/23 15:31 15:31 15:31 WBC 22.7 H Neutrophils # 20.6 H Sodium 136 L Chloride 96 L Carbon Dioxide 21 L Creatinine 1.37 H Glucose 222 H Calcium 10.4 H Magnesium 2.5 H ALT 51 H Alkaline Phosphatase 145 H Total Protein 8.5 H Albumin 5.2 H TSH 7.890 H Urine Protein 2+ H Urine Glucose (UA) Trace H Urine Ketones 1+ H Urine Blood Small H Urine Bilirubin 1+ H Urine WBC 7 H Hyaline Casts 16 H Urine Mucus Many H U Tricyclic Antidepress Detected H U Benzodiazepines Scrn Detected H [place] 2.2 H* U Marijuana (THC) Screen Detected H Assessment and Plan Assessment: * Altered mental status, likely due to delirium related to lithium toxicity. * Schizoaffective disorder * Marijuana use * Vapes * Polypharmacy. Plan: * Patient's confusion is likely due to lithium toxicity. [place] has been put on hold. Psychiatry is on board. May need to re-assess psych medications. Psychiatry on board. * I tried to contact patient's mother two different times, but she did not order picker/assembler the phone. * Dr. Kofi Torres Will resume neurology service in the morning. * Thank you for the consult.
[2023-07-09] MEDS: IOPAMIDOL CONTRAST (ORAL USE) VIAL PO PRN ×2 (15:24→16:22)
[2023-07-09 16:28] LABS: Glucose,Whole Blood 94 mg/dL (70-110)
--- NOTE | 2023-07-09 17:28 | CT ---
EXAMINATION TYPE: CT abdomen pelvis w con DATE OF EXAM: 07/09/2023 COMPARISON: HISTORY: leukocytosis CT DLP: 740.8 mGycm Automated exposure control for dose reduction was used. TECHNIQUE: Helical acquisition of images was performed from the lung bases through the pelvis. CONTRAST: Performed with Oral Contrast and with IV Contrast, patient injected with 100 mL of Isovue 370. FINDINGS: There is mild interstitial scarring in the right lung base otherwise the lung bases are clear without evidence of pneumonic infiltrate or pleural effusion. The gallbladder is contracted no gallstone or biliary ductal dilatation. There is no focal mass or organomegaly involving the liver, pancreas, spleen or adrenal glands. There is no solid renal mass or hydronephrosis. Caliber the abdominal aorta is normal. There is no re troperitoneal adenopathy or hemorrhage in the bowel loops are normal in caliber is no dilatation or o bstruction. There is diffuse thickening of the wall of the cecum and proximal ascending colon. There is no inflam matory change in the pericolic fat. There is no free intraperitoneal air or fluid. There is no pelvic mass, free fluid, abscess or adenopathy The osseous structures are intact. IMPRESSION: Diffuse thickening of the wall of the cecum and proximal ascending colon consistent with an inflammat ory process. There is no bowel obstruction, intra-abdominal abscess, free air or free fluid. No other significant abnormalities.
[2023-07-09] MEDS ORDERED: QUEtiapine 100 MG TAB PO SCH (21:00)
[2023-07-09] MEDS: DIVALPROEX ER 500 MG TAB.ER.24H PO SCH (21:33)
[2023-07-09] MEDS: cloNIDine HCL 0.2 MG TAB PO SCH (21:34)
--- NOTE | 2023-07-09 23:20 | P.CONS ---
History of Present Illness - Reason for Consult Consult date: 07/09/23 Leukocytosis and question of cellulitis Requesting physician: Mick Altamirano - Chief Complaint Mental status changes x one day - History of Present Illness Patient is a 43-year-old male with a past medical history significant for anxiety depression bipolar disorder,patient was brought into the ER the patient was found to be confused [place] patient was brought into the ER for further management on presentation to hospital the patient was afebrile and no fever have recorded subsequently patient was not tachycardic hypotensive or hypoxic patient did have an elevated white count of 22.7 with a left shift did have elevated creatinine subsequently normalized ALT was mildly elevated CRP mildly elevated urine has been relatively negative urine drug screen was positive for tricyclic benzo and marijuana and patient have elevated lithium there was concern for possible left leg scabbing and cellulitis for the patient was started on cefazolin infectious disease was consulted for further management of antibiotic therapy patient did have a episode of vomiting as documented by the ER physician however the patient currently denies having any vomiting some nausea and no diarrhea or constipation no urinary symptoms, patient did have a chest x-ray that was negative for acute process Review of Systems Positive point and negatives has been mentioned in the HPI, complete review of systems was performed and all other systems are negative Past Medical History Past Medical History: No Reported History History of Any Multi-Drug Resistant Organisms: None Reported Past Surgical History: Tonsillectomy Past Anesthesia/Blood Transfusion Reactions: No Reported Reaction Past Psychological History: Anxiety, Depression Smoking Status: Vaper Past Alcohol Use History: None Reported Past Drug Use History: Marijuana Medications and Allergies Home Medications Medication Instructions Recorded Confirmed Type FLUoxetine HCL [PROzac] 80 mg PO DAILY 07/08/23 07/08/23 History QUEtiapine [SEROquel] 50 mg PO DAILY PRN 07/08/23 07/08/23 History busPIRone HCL 20 mg PO TID 07/08/23 07/08/23 History cloNIDine HCL [Catapres] 0.1 mg PO DAILY PRN 07/08/23 07/08/23 History cloNIDine HCL [Kapvay] 0.2 mg PO HS 07/08/23 07/08/23 History Divalproex ER [Depakote ER] 1,000 mg PO HS 30 Days #60 tab 07/11/23 Rx QUEtiapine [SEROquel] 600 mg PO HS 30 Days #90 tab 07/11/23 Rx traZODone HCL [Desyrel] 100 mg PO HS PRN 30 Days #30 tab 07/11/23 Rx Amoxic-Pot Clav 875-125Mg 1 each PO Q12HR 5 Days #10 tab 07/12/23 Rx [Augmentin 875-125] Allergies Allergy/AdvReac Type Severity Reaction Status Date / Time erythromycin base AdvReac Nausea & Verified 07/08/23 18:33 [From Erythrocin] Vomiting Physical Exam Vitals: Vital Signs Temp Pulse Pulse Resp BP BP Pulse Ox 07/09/23 06:53 98.2 F 63 16 127/81 100 07/09/23 00:35 98.0 F 68 18 109/69 97 07/08/23 21:27 98.1 F 69 18 134/82 99 07/08/23 20:16 70 16 130/86 97 07/08/23 18:44 75 18 149/90 98 07/08/23 15:12 98.3 F 78 18 147/108 98 Intake and Output 07/08/23 07/09/23 07/09/23 22:59 06:59 14:59 Output Total 200 Balance -200 Output: Urine 200 Other: # Voids 0 Weight 72.575 kg GENERAL DESCRIPTION: Middle-aged male lying in bed, no distress. No tachypnea or accessory muscle of respiration use. HEENT: Shows Pallor , no scleral icterus. Oral mucous membrane is dry. No pharyngeal erythema or thrush NECK: Trachea central, no thyromegaly. LUNGS: Unlabored breathing. Clear to auscultation anteriorly. No wheeze or crackle. HEART: S1, S2, regular rate and rhythm. No loud murmur ABDOMEN: Soft, no tenderness , guarding or rigidity, no organomegaly EXTREMITIES: No edema of feet. SKIN: No rash, no masses palpable. NEUROLOGICAL: The patient is awake, alert, oriented x3, mood and affect normal. Results CBC & Chem 7: 07/12/23 06:00 07/12/23 06:00 Labs: Abnormal Lab Results - Last 24 Hours (Table) 07/08/23 07/08/23 07/08/23 Range/Units 15:31 15:31 15:31 WBC 22.7 H (3.8-10.6) k/uL RBC (4.30-5.90) m/uL Neutrophils # 20.6 H (1.3-7.7) k/uL Sodium 136 L (137-145) mmol/L Chloride 96 L (98-107) mmol/L Carbon Dioxide 21 L (22-30) mmol/L Creatinine 1.37 H (0.66-1.25) mg/dL Glucose 222 H (74-99) mg/dL POC Glucose (mg/dL) (70-110) mg/dL Calcium 10.4 H (8.4-10.2) mg/dL Magnesium 2.5 H (1.6-2.3) mg/dL ALT 51 H (4-49) U/L Alkaline Phosphatase 145 H (38-126) U/L Total Protein 8.5 H (6.3-8.2) g/dL Albumin 5.2 H (3.5-5.0) g/dL TSH 7.890 H (0.465-4.680) mIU/L Urine Protein 2+ H (Negative) Urine Glucose (UA) Trace H (Negative) Urine Ketones 1+ H (Negative) Urine Blood Small H (Negative) Urine Bilirubin 1+ H (Negative) Urine WBC 7 H (0-5) /hpf Hyaline Casts 16 H (0-2) /lpf Urine Mucus Many H (None) /hpf U Tricyclic Antidepress Detected H (NotDetected) U Benzodiazepines Scrn Detected H (NotDetected) [place] 2.2 H* mmol/L U Marijuana (THC) Screen Detected H (NotDetected) 07/09/23 07/09/23 07/09/23 Range/Units 10: 10: 11:18 WBC 14.0 H (3.8-10.6) k/uL RBC 4.10 L (4.30-5.90) m/uL Neutrophils # 11.2 H (1.3-7.7) k/uL Sodium 133 L (137-145) mmol/L Chloride (98-107) mmol/L Carbon Dioxide 20 L (22-30) mmol/L Creatinine (0.66-1.25) mg/dL Glucose 115 H (74-99) mg/dL POC Glucose (mg/dL) 116 H (70-110) mg/dL Calcium (8.4-10.2) mg/dL Magnesium (1.6-2.3) mg/dL ALT 54 H (4-49) U/L Alkaline Phosphatase (38-126) U/L Total Protein (6.3-8.2) g/dL Albumin (3.5-5.0) g/dL TSH (0.465-4.680) mIU/L Urine Protein (Negative) Urine Glucose (UA) (Negative) Urine Ketones (Negative) Urine Blood (Negative) Urine Bilirubin (Negative) Urine WBC (0-5) /hpf Hyaline Casts (0-2) /lpf Urine Mucus (None) /hpf U Tricyclic Antidepress (NotDetected) U Benzodiazepines Scrn (NotDetected) [place] mmol/L U Marijuana (THC) Screen (NotDetected) Assessment and Plan (1) Leukocytosis Status: Acute Code(s): D72.829 - ELEVATED WHITE BLOOD CELL COUNT, UNSPECIFIED SNOMED Code(s): 957959653 Plan: 1patient with leukocytosis which is likely multifactorial clinically doubt cellulitis patient did have a negative chest x-ray here has been negative there is reported history of nausea and vomiting and some week abdominal pain will need to rule out intra-abdominal source. 2we will check CT of abdominal pelvis 3-discontinue cefazolin start the patient on Unasyn 4-we will check a blood culture and inflammatory markers We will follow on clinical condition and cultures to further adjust medication if needed Thank you for this consultation we will follow the patient along with you Dictation was produced using [employer] dictation software. please excuse any grammatical, word or spelling errors. Time with Patient: Greater than 30
[2023-07-09] MEDS: AMPICILLIN-SULBACTAM 3 GM in SODIUM CHLORIDE 0.9% 100 ML IVPB SCH (23:59)
[2023-07-10] MEDS: ACETAMINOPHEN TAB 325 MG TAB PO PRN ×4 (00:03→19:55)
[2023-07-10] MEDS: SODIUM CHLORIDE 0.9% 1,000 ML IV SCH (05:57)
[2023-07-10] MEDS: AMPICILLIN-SULBACTAM 3 GM in SODIUM CHLORIDE 0.9% 100 ML IVPB SCH ×4 (06:51→23:51)
[2023-07-10] MEDS: busPIRone HCl 10 MG TAB PO SCH ×3 (08:20→21:51)
[2023-07-10] MEDS: FLUoxetine HCL 20 MG CAP PO SCH (08:20)
[2023-07-10] MEDS: HEPARIN SODIUM,PORCINE 5,000 UNIT/ML 1 ML VIAL SQ SCH ×2 (08:21→21:45)
[2023-07-10 11:17] LABS: HCT 37.3 % (39.0-53.0); MCH 33.6 pg (25.0-35.0); MCHC 34.9 g/dL (31.0-37.0); MCV 96.3 fL (80.0-100.0); Mean Platelet Volume 7.5; Platelet Count 241 k/uL (150-450); RBC 3.87 m/uL (4.30-5.90); RDW 12.8 % (11.5-15.5); WBC 12.5 k/uL (3.8-10.6)
[2023-07-10 11:32] LABS: African American GFR (CKD) >90 (>60 ml/min/1.73 sqM); Anion Gap 9 mmol/L; Blood Urea Nitrogen 5 mg/dL (9-20); Carbon Dioxide 23 mmol/L (22-30); Chloride 103 mmol/L (98-107); Glucose 110 mg/dL (74-99); Non-African American GFR(CKD) >90 (>60 ml/min/1.73 sqM); Sodium 135 mmol/L (137-145)
[2023-07-10 11:34] LABS: Potassium 4.2 mmol/L (3.5-5.1)
[2023-07-10 12:09] LABS: Appearance,Urine Clear (Clear); Bilirubin,Urine Negative (Negative); Blood,Urine Negative (Negative); Color,Urine Light Yellow; Glucose,Urine (UA) Negative (Negative); Ketones,Urine Negative (Negative); Leukocyte Esterase,Urine Negative (Negative); Nitrite,Urine Negative (Negative); Protein,Urine Negative (Negative); Specific Gravity,Urine 1.015 (1.001-1.035); Urobilinogen,Urine <2.0 mg/dL (<2.0)
--- NOTE | 2023-07-10 14:12 | P.PN ---
Subjective Progress Note Date: 07/10/23 * 43-year-old gentleman with past medical history significant for bipolar disorder and schizophrenia brought to the ER for confusion. History is limited, most of it is obtained from electronic medical records. According to that patient was [place] Patient was very confused, generally about day and month and what was he doing. Patient history of prior schizophrenia not sure about the patient being compliant with his medication, last prescription filled was a few days back. Denied any auditory or visual hallucinations. No complain of fever or chills. * Initial lab work done in the ER showed WBC 22.7, hemoglobin 15.6, platelet count 410, sodium 136, potassium 4.4, BUN 14, creatinine 1.37 magnesium 2.5, calcium 10.4, albumin 5.2, TSH 7.8UA negative for nitrites, negative for leukocyte esterase, no evidence of infectionUrine drug screen positive for tricyclic antidepressants, marijuana * CT brain negative for any acute intracranial hemorrhageChest x-ray showed no acute cardiopulmonary process * 07/10/23: Patient seen and evaluated bedside mentation had improved. CT abdomen and pelvis shows diffuse thickening of cecum was ascending colon consistent with infiltrative process. Urinalysis was obtained on admission showed WBC leukocyte esterase and nitrite: Negative. Urine analysis is normal following continue patient on Unasyn. K plan discussed with mother at bedside Objective - Vital Signs Vital signs: Vital Signs Temp 98.0 F 07/10/23 12:29 Pulse 68 07/10/23 12:29 Resp 16 07/10/23 12:29 BP 148/97 07/10/23 12:29 Pulse Ox 99 07/10/23 12:29 FiO2 Intake & Output 07/09/23 07/10/23 07/10/23 18:59 06:59 18:59 Output Total 200 500 Balance -200 -500 Output: Urine 200 500 Other: # Voids 5 0 - Exam PHYSICAL EXAMINATION: GENERAL: The patient is alert and oriented x3, not in any acute distress. Well developed, well nourished. HEENT: Pupils are round and equally reacting to light. EOMI. No scleral icterus. No conjunctival pallor. Normocephalic, atraumatic. No pharyngeal erythema. No thyromegaly. CARDIOVASCULAR: S1 and S2 present. No murmurs, rubs, or gallops. PULMONARY: Chest is clear to auscultation, no wheezing or crackles. ABDOMEN: Soft, nontender, nondistended, normoactive bowel sounds. No palpable organomegaly. MUSCULOSKELETAL: No joint swelling or deformity. EXTREMITIES: No cyanosis, clubbing, or pedal edema. NEUROLOGICAL: Gross neurological examination did not reveal any focal deficits. SKIN: No rashes. - Labs CBC & Chem 7: 07/10/23 10:36 07/10/23 10:36 Labs: Abnormal Lab Results - Last 24 Hours (Table) 07/09/23 07/09/23 07/10/23 Range/Units 15:02 15:02 10:36 WBC 12.5 H (3.8-10.6) k/uL RBC 3.87 L (4.30-5.90) m/uL Hct 37.3 L (39.0-53.0) % Sodium (137-145) mmol/L BUN (9-20) mg/dL Glucose (74-99) mg/dL C-Reactive Protein 1.7 H (<1.0) mg/dL Procalcitonin 0.13 H (0.02-0.09) ng/mL 07/10/23 Range/Units 10:36 WBC (3.8-10.6) k/uL RBC (4.30-5.90) m/uL Hct (39.0-53.0) % Sodium 135 L (137-145) mmol/L BUN 5 L (9-20) mg/dL Glucose 110 H (74-99) mg/dL C-Reactive Protein (<1.0) mg/dL Procalcitonin (0.02-0.09) ng/mL Assessment and Plan Assessment: Assessment and plan * Acute metabolic encephalopathy * Acute colitis * Acute kidney injury * Left knee laceration * Cellulitis lower extremity * Schizophrenia * Bipolar disorder * In regards to metabolic encephalopathy, patient resuscitated with fluid WBC count improving, continue on IV antibiotic * In regards to colitis CT abdomen pelvis reviewed patient denies of diarrhea and abdominal pain at this point continue IV antibiotic continue patient on current diet * In regards to acute kidney injury renal function improved after resuscitation * In regards to left proximity cellulitis continue patient on IV antibiotic * In regards to she's affective disorder seen by psychiatry medication changes m yosef at continue on current medications
--- NOTE | 2023-07-10 15:15 | P.PN ---
Subjective Progress Note Date: 07/10/23 I am seeing the patient for the first time during this time. Please refer to Dr. Perez's notes for further details. It seems the patient had mood disorder and is on [place] and his lithium was toxic. He had confusion on presentation and he currently has no further confusion and mother agrees. He denies of any headache, focal weakness. Objective - Vital Signs Vital signs: Vital Signs Temp 98.0 F 07/10/23 12:29 Pulse 68 07/10/23 12:29 Resp 16 07/10/23 12:29 BP 148/97 07/10/23 12:29 Pulse Ox 99 07/10/23 12:29 FiO2 Intake & Output 07/09/23 07/10/23 07/10/23 18:59 06:59 18:59 Output Total 200 500 Balance -200 -500 Output: Urine 200 500 Other: # Voids 5 0 - Exam GENERAL: The patient is sitting in chair and is not in acute distress. NEUROLOGICAL: Higher mental function: The patient is awake, alert, oriented to self, place and time. Patient is following commands. No aphasia and no neglect. Cranial nerves: The pupils are round, equal and reactive to light and accommodation. Visual frey are full to confrontation throughout. Extraocular movement is intact no nystagmus is noted. Facial sensation is normal to touch throughout. The facial strength is normal throughout. Tongue is midline and moved [id number] without any difficulty. No dysarthria is noted. Shoulder shrug is normal bilaterally. Motor: The strength is 5 over 5 throughout. Normal tone and bulk. Cerebellum: Normal finger to nose bilaterally. Sensation: Sensation is normal to touch throughout. - Labs CBC & Chem 7: 07/10/23 10:36 07/10/23 10:36 Labs: Abnormal Lab Results - Last 24 Hours (Table) 07/09/23 07/09/23 07/10/23 Range/Units 15:02 15:02 10:36 WBC 12.5 H (3.8-10.6) k/uL RBC 3.87 L (4.30-5.90) m/uL Hct 37.3 L (39.0-53.0) % Sodium (137-145) mmol/L BUN (9-20) mg/dL Glucose (74-99) mg/dL C-Reactive Protein 1.7 H (<1.0) mg/dL Procalcitonin 0.13 H (0.02-0.09) ng/mL 07/10/23 Range/Units 10:36 WBC (3.8-10.6) k/uL RBC (4.30-5.90) m/uL Hct (39.0-53.0) % Sodium 135 L (137-145) mmol/L BUN 5 L (9-20) mg/dL Glucose 110 H (74-99) mg/dL C-Reactive Protein (<1.0) mg/dL Procalcitonin (0.02-0.09) ng/mL Assessment and Plan Assessment: * Altered mental status, likely due to delirium related to lithium toxicity--mentation improved * Schizoaffective disorder * Marijuana use * Vapes * Polypharmacy. Plan: Patient's confusion is likely due to lithium toxicity. Psychiatry on board. They placed him instead on Depakote. I spoke with patient mother and she is in agreement that he has no further confusion. There is no further neurological work-up. Will sign off. Please reconsult neurology if any further concerns. Time with Patient: Less than 30
--- NOTE | 2023-07-10 15:21 | P.PN ---
Progress Note - Text Progress Note Date: 07/10/23 Interval history: Patient was seen today for psychiatric follow-up regarding patient's delirium and schizoaffective disorder. Patient was placed on Depakote last night instead of lithium. He states that he has been tolerating it well so far and denying any side effects. We spoke more about his medication doses and patient wanted to be on a slightly higher dose of the Seroquel up to 600 mg, it will be adjusted for today. Patient states that he only slept about 3 or 4 hours last night. We spoke about adding on trazodone as needed which she is okay with. He claims that he is doing a bit better today with regards to his mood, states that he is feeling more stable. He appeared to be less confused today, he was able to give the correct month and season which she was not able to do yesterday. He knows his full name and also with his location. At this time he is denying any auditory or visual hallucinations. Denying any suicidal or homicidal ideations intent or plan. Claims that his appetite is improving. Mental status examination: General Appearance: Patient appears to be thin, unshaven, stated age is alert, less confused today and more cooperative. Patient appears to have fair hygiene and grooming wearing hospital gown with fair eye contact. Behavior: Patient is calmly lying in bed without any agitated behavior. More cooperative today. Speech: Patient's speech is fluent and nonpressured. Mood/Affect: Patient reports their mood is "better", affect is congruent Suicidality/Homicidality: Patient denies having any suicidal or homicidal ideation intent or plan. Perceptions: Patient denies any visual hallucinations and denies any auditory hallucinations Though content/process: There is no evidence of any delusional thought content and thought process is linear and goal-directed. More appropriate today. Memory and concentration: AOX2, does not know todays date, poor attention span. Cannot spell "WORLD" backwards Judgment and insight: Improving mildly IMPRESSIONS: Delirium secondary to lithium toxicity and dehydration schizoaffective disorder hx of ptsd cannabis use disorder nicotine dependence PLAN: -At this time patient DOES NOT meet criteria for inpatient psychiatric admission -Delirium precautions recommended with patient including - avoiding use of narcotics and [employer] sedatives, limit anticholinergic medications when possible, frequent re-orientation, minimize use of restraints, open window shades during the day and close them at night -Would recommend the following medication changes/additions: continue depakote er 1000 mg qhs for mood stabilization. continue with prozac and clonidine as home dose. increased seroquel 600 mg qhs for mood stabilization/insomnia. trazodone 100 mg qhs prn for insomnia. -patient will need a follow up appt at [facility] within 1-2 weeks at [facility] [address] -psychiatry will sign off at this time. continue with treatment of underlying medical illness and infection. -Please contact with any questions.
[2023-07-10] MEDS: DIVALPROEX ER 500 MG TAB.ER.24H PO SCH (21:50)
[2023-07-10] MEDS: QUEtiapine 200 MG TAB PO SCH (21:51)
[2023-07-10] MEDS: traZODone HCL 100 MG TAB PO PRN (21:51)
[2023-07-10] MEDS: cloNIDine HCL 0.2 MG TAB PO SCH (21:51)
[2023-07-11] MEDS: AMPICILLIN-SULBACTAM 3 GM in SODIUM CHLORIDE 0.9% 100 ML IVPB SCH ×3 (05:23→17:03)
[2023-07-11 07:37] VITALS: RESP 16
[2023-07-11 08:47] LABS: HCT 35.8 % (39.6-50.0); HGB 12.2 d/dL (13.0-17.0); MCH 32.2 pg (27.0-32.0); MCHC 34.1 d/dL (32.0-37.0); MCV 94.5 FL (80.0-97.0); Mean Platelet Volume 9.5 FL (9.5-12.2); NRBC Per 100 WBC 0 X 10*3/uL (0.00-0.01); Platelet Count 236 X 10*3/uL (140-440); RBC 3.79 X 10*6/uL (4.40-5.60); RDW 12.7 % (11.5-14.5); WBC 10.64 X 10*3/uL (4.50-10.00)
[2023-07-11] MEDS: HEPARIN SODIUM,PORCINE 5,000 UNIT/ML 1 ML VIAL SQ SCH ×2 (08:53→21:54)
[2023-07-11] MEDS: ACETAMINOPHEN TAB 325 MG TAB PO PRN ×3 (08:55→21:56)
[2023-07-11] MEDS: busPIRone HCl 10 MG TAB PO SCH ×3 (08:56→21:54)
[2023-07-11] MEDS: FLUoxetine HCL 20 MG CAP PO SCH (08:56)
[2023-07-11 09:10] LABS: BUN/Creat Ratio 4.78 Ratio (12.00-20.00); Blood Urea Nitrogen 4.3 mg/dL (9.0-27.0); Calcium 9.3 mg/dL (8.7-10.3); Carbon Dioxide 25.2 mmol/L (21.6-31.8); Chloride 102 mmol/L (96-109); Glucose 82 mg/dL (70-110); Potassium 3.8 mmol/L (3.5-5.5); Sodium 141 mmol/L (135-145)
--- NOTE | 2023-07-11 11:52 | CDI ---
Documentation Clarification Form Date: 07/11/2023 11:10:27 AM From: Cuca Hidalgo RN CCDS Phone: [phone] Admit Date: 07/08/2023 08:08:00 PM Patient Name: Zia Marie Visit Number: [id number] Discharge Date: ATTENTION: The Clinical Documentation Specialists (CDI) and [facility] Coding Staff appreciate your assistance in clarifying documentation. Please respond to the clarification below the line at the bottom and electronically sign. The CDI & [facility] Coding staff will review the response and follow-up if needed. Please note: Queries are made part of the Legal Health Record. If you have any questions, please contact the author of this message via ITS. Dr. Alcira Teresa Acute Metabolic Encephalopathy is documented 07/10, medicine note. Additional clarification regarding the type of encephalopathy is requested. History/Risk Factors:43-year-old male presented by EMS after being found confused and [place]. Medical history: Schizophrenia and Bipolar disorder 07/09, H&P. Clinical Indicators: Labs: 07/08 [place] 2.2, CT Brain with out contrast: 07/08 No acute intracranial hemorrhage, mass effect, or midline shift is seen. Neuro, 07/10: Patients confusion is likely due to lithium toxicity. Psychiatry on board. Altered mental status, likely due to delirium related to lithium toxicity mentation improved. Psychiatry, 07/10: Delirium secondary to lithium toxicity and dehydration. Treatment: Discontinued [place] started patient on Depakote Consults: Neurology and Psychiatry see above Please clarify what the encephalopathy is related to: [ y ] Toxic Metabolic Encephalopathy secondary to [place] toxicity [ ] Other, please specify [ ] Unable to determine (Template Last Revised: November 2020) MTDD
--- NOTE | 2023-07-11 12:09 | P.PN ---
Subjective Progress Note Date: 07/11/23 * 43-year-old gentleman with past medical history significant for bipolar disorder and schizophrenia brought to the ER for confusion. History is limited, most of it is obtained from electronic medical records. According to that patient was [place]. Patient was very confused, generally about day and month and what was he doing. Patient history of prior schizophrenia not sure about the patient being compliant with his medication, last prescription filled was a few days back. Denied any auditory or visual hallucinations. No complain of fever or chills. * Initial lab work done in the ER showed WBC 22.7, hemoglobin 15.6, platelet count 410, sodium 136, potassium 4.4, BUN 14, creatinine 1.37 magnesium 2.5, calcium 10.4, albumin 5.2, TSH 7.8UA negative for nitrites, negative for leukocyte esterase, no evidence of infectionUrine drug screen positive for tricyclic antidepressants, marijuana * CT brain negative for any acute intracranial hemorrhageChest x-ray showed no acute cardiopulmonary process * 07/10/23: Patient seen and evaluated bedside mentation had improved. CT abdomen and pelvis shows diffuse thickening of cecum was ascending colon consistent with infiltrative process. Urinalysis was obtained on admission showed WBC leukocyte esterase and nitrite: Negative. Urine analysis is normal following continue patient on Unasyn. K plan discussed with mother at bedside * 07/11/23: Patient seen and evaluated bedside, patient alert and oriented 3, denies of any acute issues mentation has improved. Continue patient on Unasyn, CRP improving W BC count improving medications changed by psychiatry potential discharge within the next 24 hours. Objective - Vital Signs Vital signs: Vital Signs Temp 97.6 F 07/11/23 07:32 Pulse 85 07/11/23 07:32 Resp 16 07/11/23 07:32 BP 143/88 07/11/23 07:32 Pulse Ox 98 07/11/23 07:32 FiO2 Intake & Output 07/10/23 07/11/23 07/11/23 18:59 06:59 18:59 Output Total 500 Balance -500 Output: Urine 500 Other: # Voids 5 2 - Exam PHYSICAL EXAMINATION: GENERAL: The patient is alert and oriented x 3, not in any acute distress. Well developed, well nourished. HEENT: Pupils are round and equally reacting to light. EOMI. No scleral icterus. CARDIOVASCULAR: S1 and S2 present. No murmurs, rubs, or gallops. PULMONARY: Chest is clear to auscultation, no wheezing or crackles. ABDOMEN: Soft, nontender, nondistended, normoactive bowel sounds. No palpable organomegaly. MUSCULOSKELETAL: No joint swelling or deformity. EXTREMITIES: No cyanosis, clubbing, or pedal edema. NEUROLOGICAL: Gross neurological examination did not reveal any focal deficits. SKIN: No rashes. - Labs CBC & Chem 7: 07/11/23 05:48 07/11/23 05:48 Labs: Abnormal Lab Results - Last 24 Hours (Table) 07/11/23 07/11/23 Range/Units 05:48 05:48 WBC 10.64 H (4.50-10.00) X 10*3/uL RBC 3.79 L (4.40-5.60) X 10*6/uL Hgb 12.2 L (13.0-17.0) d/dL Hct 35.8 L (39.6-50.0) % MCH 32.2 H (27.0-32.0) pg Anion Gap 13.80 H (4.00-12.00) mmol/L BUN 4.3 L (9.0-27.0) mg/dL BUN/Creatinine Ratio 4.78 L (12.00-20.00) Ratio C-Reactive Protein 0.90 H (0.00-0.80) mg/dL Microbiology - Last 24 Hours (Table) 07/09/23 15:02 Blood Culture - Preliminary Blood Assessment and Plan Assessment: Assessment and plan * Acute metabolic encephalopathy * Acute colitis * Acute kidney injury * Left knee laceration * Cellulitis lower extremity * Schizophrenia * Bipolar disorder * In regards to metabolic encephalopathy, patient resuscitated with fluid WBC count improving, continue on IV antibiotic * In regards to colitis CT abdomen pelvis reviewed patient denies of diarrhea and abdominal pain at this point continue IV antibiotic continue patient on current diet * In regards to acute kidney injury renal function improved after resuscitation * In regards to left proximity cellulitis continue patient on IV antibiotic * In regards to she's affective disorder seen by psychiatry medication changes made at continue on current medications * Discharged home in the next 24 hours care plan discussed with patient was in agreement
--- NOTE | 2023-07-11 12:54 | P.PN ---
Subjective Progress Note Date: 07/10/23 Principal diagnosis: Leukocytosis and colitis Patient is a 43-year-old male with a past medical history significant for anxiety depression bipolar disorder,patient was brought into the ER the patient was found to be confused [place], patient did have elevated white count also with history of nausea vomiting patient did have CT of abdominal pelvis with evidence of colitis. On today's evaluation that is 07/10/2023, the patient continues to be afebrile, the patient is breathing comfortably on room air and denies any chest pain or cough, patient denies abdominal pain, and denies any nausea/vomiting or diarrhea Patient white count of 12.5, creatinine 0.76 UA is negative Objective - Vital Signs Vital signs: Vital Signs Temp 98.3 F 07/10/23 07:11 Pulse 62 07/10/23 07:11 Resp 16 07/10/23 07:11 BP 128/86 07/10/23 07:11 Pulse Ox 100 07/10/23 07:11 FiO2 Intake & Output 07/09/23 07/10/23 07/10/23 18:59 06:59 18:59 Output Total 200 500 Balance -200 -500 Output: Urine 200 500 Other: # Voids 5 0 - Exam GENERAL DESCRIPTION: A middle-age male lying in bed in no distress RESPIRATORY SYSTEM: Unlabored breathing , clear to auscultation anteriorly HEART: S1 S2 regular rate and rhythm , ABDOMEN: Soft , no tenderness EXTREMITIES: No edema feet - Labs CBC & Chem 7: 07/11/23 05:48 07/11/23 05:48 Labs: Abnormal Lab Results - Last 24 Hours (Table) 07/09/23 07/09/23 07/10/23 Range/Units 15:02 15:02 10:36 WBC 12.5 H (3.8-10.6) k/uL RBC 3.87 L (4.30-5.90) m/uL Hct 37.3 L (39.0-53.0) % Sodium (137-145) mmol/L BUN (9-20) mg/dL Glucose (74-99) mg/dL C-Reactive Protein 1.7 H (<1.0) mg/dL Procalcitonin 0.13 H (0.02-0.09) ng/mL 10/23/23 Range/Units 10:36 WBC (3.8-10.6) k/uL RBC (4.30-5.90) m/uL Hct (39.0-53.0) % Sodium 135 L (137-145) mmol/L BUN 5 L (9-20) mg/dL Glucose 110 H (74-99) mg/dL C-Reactive Protein (<1.0) mg/dL Procalcitonin (0.02-0.09) ng/mL Assessment and Plan (1) Leukocytosis Current Visit: Yes Status: Acute Code(s): D72.829 - ELEVATED WHITE BLOOD CELL COUNT, UNSPECIFIED SNOMED Code(s): 614531187 (2) Colitis Current Visit: Yes Status: Acute Code(s): K52.9 - NONINFECTIVE GASTROENTERITIS AND COLITIS, UNSPECIFIED SNOMED Code(s): 84370029 Plan: 1patient with leukocytosis which is likely multifactorial clinically doubt cellulitis patient did have a negative chest x-ray here has been negative there is reported history of nausea and vomiting and some week abdominal pain will need to rule out intra-abdominal source. 2 CT of abdominal pelvis diffuse thickening of the wall of the cecum and proximal ascending colon concerning for inflammatory process 3patient is afebrile white count is trending down, Patient to continue with Unasyn, while waiting for the cultures to finalize Dictation was produced using [employer] dictation software. please excuse any grammatical, word or spelling errors. Time with Patient: Less than 30
--- NOTE | 2023-07-11 12:56 | P.PN ---
Subjective Progress Note Date: 07/11/23 Principal diagnosis: Leukocytosis and colitis Patient is a 43-year-old male with a past medical history significant for anxiety depression bipolar disorder,patient was brought into the ER the patient was found to be confused [place], patient did have elevated white count also with history of nausea vomiting patient did have CT of abdominal pelvis with evidence of colitis. On today's evaluation that is 07/11/2023, the patient remains to be afebrile, the patient is breathing comfortably on room air without the need for supplemental oxygen and denies any shortness of breath, the patient denies having any chest pain or cough, patient denies nausea/vomiting /diarrhea and no abdominal pain, Patient white count is down to 10.64, creatinine is 0.9, UA is negative, blood cultures were pending Objective - Vital Signs Vital signs: Vital Signs Temp 97.6 F 07/11/23 07:32 Pulse 85 07/11/23 07:32 Resp 16 07/11/23 07:32 BP 143/88 07/11/23 07:32 Pulse Ox 98 07/11/23 07:32 FiO2 Intake & Output 07/10/23 07/11/23 07/11/23 18:59 06:59 18:59 Output Total 500 Balance -500 Output: Urine 500 Other: # Voids 5 2 - Exam GENERAL DESCRIPTION: A middle-age male lying in bed in no distress RESPIRATORY SYSTEM: Unlabored breathing , clear to auscultation anteriorly HEART: S1 S2 regular rate and rhythm , ABDOMEN: Soft , no tenderness EXTREMITIES: No edema feet - Labs CBC & Chem 7: 07/11/23 05:48 07/11/23 05:48 Labs: Abnormal Lab Results - Last 24 Hours (Table) 07/11/23 07/11/23 Range/Units 05:48 05:48 WBC 10.64 H (4.50-10.00) X 10*3/uL RBC 3.79 L (4.40-5.60) X 10*6/uL Hgb 12.2 L (13.0-17.0) d/dL Hct 35.8 L (39.6-50.0) % MCH 32.2 H (27.0-32.0) pg Anion Gap 13.80 H (4.00-12.00) mmol/L BUN 4.3 L (9.0-27.0) mg/dL BUN/Creatinine Ratio 4.78 L (12.00-20.00) Ratio C-Reactive Protein 0.90 H (0.00-0.80) mg/dL Microbiology - Last 24 Hours (Table) 07/09/23 15:02 Blood Culture - Preliminary Blood Assessment and Plan (1) Leukocytosis Current Visit: Yes Status: Acute Code(s): D72.829 - ELEVATED WHITE BLOOD CELL COUNT, UNSPECIFIED SNOMED Code(s): 102446500 Plan: 1patient with leukocytosis which is likely multifactorial clinically doubt cellulitis patient did have a negative chest x-ray here has been negative there is reported history of nausea and vomiting and some week abdominal pain will need to rule out intra-abdominal source. 2 CT of abdominal pelvis diffuse thickening of the wall of the cecum and proximal ascending colon concerning for inflammatory process 3patient seemed to have shown clinical improvement, white count almost n ormalized, Patient to continue with Unasyn, with a plan to finish therapy with oral Augmentin Dictation was produced using [email or web address] dictation software. please excuse any grammatical, word or spelling errors. Time with Patient: Less than 30
[2023-07-11] MEDS: QUEtiapine 200 MG TAB PO SCH (21:54)
[2023-07-11] MEDS: traZODone HCL 100 MG TAB PO PRN (21:54)
[2023-07-11] MEDS: cloNIDine HCL 0.2 MG TAB PO SCH (21:54)
[2023-07-11] MEDS: DIVALPROEX ER 500 MG TAB.ER.24H PO SCH (21:56)
[2023-07-12] MEDS: AMPICILLIN-SULBACTAM 3 GM in SODIUM CHLORIDE 0.9% 100 ML IVPB SCH ×2 (00:21→05:51)
[2023-07-12 07:05] VITALS: BP 143/99; PULSE 83; TEMP 98.2
[2023-07-12] MEDS: busPIRone HCl 10 MG TAB PO SCH (08:29)
[2023-07-12] MEDS: ACETAMINOPHEN TAB 325 MG TAB PO PRN (08:30)
[2023-07-12] MEDS: FLUoxetine HCL 20 MG CAP PO SCH (08:31)
[2023-07-12] MEDS: HEPARIN SODIUM,PORCINE 5,000 UNIT/ML 1 ML VIAL SQ SCH (09:49)
--- NOTE | 2023-07-12 10:59 | P.DS ---
Providers Date of admission: 07/08/23 20:08 Expected date of discharge: 07/12/23 Attending physician: Leobardo Deshpande Consults: 07/08/23 20:05 Consult Physician Routine Consulting Provider: Ahsan Cannon Consult Reason/Comments: Altered mental status, bipolar and schizophrenic history, lithium toxicity Do you want consulting provider notified?: Yes, Notify in am Consult Physician Routine Consulting Provider: Olu Perez Consult Reason/Comments: Altered mental status Do you want consulting provider notified?: Yes, Notify in am 07/09/23 10:09 Consult Physician Routine Consulting Provider: Roselyn Montiel Consult Reason/Comments: Cellulitis, leukocytosis Do you want consulting provider notified?: Yes Primary care physician: Stated None Hospital Course: * 43-year-old gentleman with past medical history significant for bipolar disorder and schizophrenia brought to the ER for confusion. History is limit ed, most of it is obtained from electronic medical records. According to that patient was [place] Patient was very confused, generally about day and month and what was he doing. Patient history of prior schizophrenia not sure about the patient being compliant with his medication, last prescription filled was a few days back. Denied any auditory or visual hallucinations. No complain of fever or chills. * Initial lab work done in the ER showed WBC 22.7, hemoglobin 15.6, platelet count 410, sodium 136, potassium 4.4, BUN 14, creatinine 1.37 magnesium 2.5, calcium 10.4, albumin 5.2, TSH 7.8UA negative for nitrites, negative for leukocyte esterase, no evidence of infectionUrine drug screen positive for tricyclic antidepressants, marijuana * CT brain negative for any acute intracranial hemorrhageChest x-ray showed no acute cardiopulmonary process * 07/10/23: Patient seen and evaluated bedside mentation had improved. CT abdomen and pelvis shows diffuse thickening of cecum was ascending colon consistent with infiltrative process. Urinalysis was obtained on admission showed WBC leukocyte esterase and nitrite: Negative. Urine analysis is normal following continue patient on Unasyn. K plan discussed with mother at bedside * 07/11/23: Patient seen and evaluated bedside, patient alert and oriented 3, denies of any acute issues mentation has improved. Continue patient on Unasyn, CRP improving W BC count improving medications changed by psychiatry potential discharge within the next 24 hours. * 07/12/23: Patient seen and evaluated bedside, on examination patient is alert and oriented 4. Has been cooperative. Patient remains afebrile. Antibiotics transitioned from Unasyn to Augmentin. CBC and inflammatory marker trending down Assessment: Assessment and plan * Acute metabolic encephalopathy RESOLVED * Acute colitis * Acute kidney injury RESOLVED * Left knee laceration * Cellulitis lower extremity * Schizophrenia * Bipolar disorder * In regards to metabolic encephalopathy, patient resuscitated with fluid WBC count improving, received IV Unasyn transition to oral Augmentin * In regards to colitis CT abdomen pelvis reviewed patient denies of diarrhea and abdominal pain at this point continue IV antibiotic continue patient on current diet * In regards to acute kidney injury renal function improved after resuscitation * In regards to left proximity cellulitis received IV Unasyn transition to oral Augmentin * In regards to mental health disorder seen by psychiatry medication changes made at continue on current medications Patient Condition at Discharge: Fair Plan - Discharge Summary Discharge Rx Participant: No New Discharge Prescriptions: New Divalproex ER [Depakote ER] 1,000 mg PO HS 30 Days #60 tab QUEtiapine [SEROquel] 600 mg PO HS 30 Days #90 tab Amoxic-Pot Clav 875-125Mg [Augmentin 875-125] 1 each PO Q12HR 5 Days #10 tab traZODone HCL [Desyrel] 100 mg PO HS PRN 30 Days #30 tab PRN Reason: Insomnia Continue cloNIDine HCL [Kapvay] 0.2 mg PO HS QUEtiapine [SEROquel] 50 mg PO DAILY PRN PRN Reason: acute anxiety FLUoxetine HCL [PROzac] 80 mg PO DAILY cloNIDine HCL [Catapres] 0.1 mg PO DAILY PRN PRN Reason: acute anxiety busPIRone HCL 20 mg PO TID Discontinued QUEtiapine FUMARATE [SEROquel XR] 800 mg PO HS [place] Carbonate [Lithobid] 600 mg PO HS Discharge Medication List FLUoxetine HCL [PROzac] 80 mg PO DAILY 07/08/23 [History] QUEtiapine [SEROquel] 50 mg PO DAILY PRN 07/08/23 [History] busPIRone HCL 20 mg PO TID 07/08/23 [History] cloNIDine HCL [Catapres] 0.1 mg PO DAILY PRN 07/08/23 [History] cloNIDine HCL [Kapvay] 0.2 mg PO HS 07/08/23 [History] Divalproex ER [Depakote ER] 1,000 mg PO HS 30 Days #60 tab 07/11/23 [Rx] QUEtiapine [SEROquel] 600 mg PO HS 30 Days #90 tab 07/11/23 [Rx] traZODone HCL [Desyrel] 100 mg PO HS PRN 30 Days #30 tab 07/11/23 [Rx] Amoxic-Pot Clav 875-125Mg [Augmentin 875-125] 1 each PO Q12HR 5 Days #10 tab 07/12/23 [Rx] Follow up Appointment(s)/Referral(s): [facility] [NON-STAFF] - 1-2 days Activity/Diet/Wound Care/Special Instructions: Transportation: [facility]: #[phone]. You can also call the transportation phone number on the back of your Medicaid card. They need at [facility] 24 hour notice. Discharge Disposition: HOME SELF-CARE
[2023-07-12 11:11] LABS: BUN/Creat Ratio 4.67 Ratio (12.00-20.00); Blood Urea Nitrogen 4.2 mg/dL (9.0-27.0); Calcium 9.5 mg/dL (8.7-10.3); Carbon Dioxide 26.7 mmol/L (21.6-31.8); Chloride 104 mmol/L (96-109); Glucose 76 mg/dL (70-110); Potassium 4.2 mmol/L (3.5-5.5); Sodium 142 mmol/L (135-145)
[2023-07-12 11:18] LABS: HCT 38.2 % (39.6-50.0); HGB 12.7 d/dL (13.0-17.0); MCH 32.1 pg (27.0-32.0); MCHC 33.2 d/dL (32.0-37.0); MCV 96.5 FL (80.0-97.0); Mean Platelet Volume 9.8 FL (9.5-12.2); NRBC Per 100 WBC 0 X 10*3/uL (0.00-0.01); Platelet Count 240 X 10*3/uL (140-440); RBC 3.96 X 10*6/uL (4.40-5.60); RDW 12.9 % (11.5-14.5); WBC 9.28 X 10*3/uL (4.50-10.00)
[2023-07-12] MEDS ORDERED: AMOXIC-POT CLAV 875-125MG 1 EACH TAB PO SCH (21:00)
--- NOTE | 2023-07-18 14:42 | P.PN ---
Subjective Progress Note Date: 07/12/23 Principal diagnosis: Leukocytosis and colitis Patient is a 43-year-old male with a past medical history significant for anxiety depression bipolar disorder,patient was brought into the ER the patient was found to be confused wandering [place], patient did have elevated white count also with history of nausea vomiting patient did have CT of abdominal pelvis with evidence of colitis. On today's evaluation that is 07/12/2023, the patient denies any fever or any chills, the patient is breathing comfortably on room air and the patient denies any shortness of breath, the patient denies having any chest pain or cough, patient denies nausea/vomiting /diarrhea and no abdominal pain, Patient white count is normal at 9.28, creatinine is 0.9, UA is negative, blood cultures so far negative Objective - Vital Signs Vital signs: Vital Signs Temp 98.2 F 07/12/23 07:03 Pulse 83 07/12/23 07:03 Resp 16 07/12/23 07:03 BP 143/99 07/12/23 07:03 Pulse Ox 99 07/12/23 07:03 FiO2 Intake & Output 07/11/23 07/12/23 07/12/23 18:59 06:59 18:59 Other: # Voids 5 2 - Exam GENERAL DESCRIPTION: A middle-age male lying in bed in no distress RESPIRATORY SYSTEM: Unlabored breathing , clear to auscultation anteriorly HEART: S1 S2 regular rate and rhythm , ABDOMEN: Soft , no tenderness EXTREMITIES: No edema feet - Labs CBC & Chem 7: 07/12/23 06:00 07/12/23 06:00 Labs: Abnormal Lab Results - Last 24 Hours (Table) 07/12/23 07/12/23 Range/Units 06:00 06:00 RBC 3.96 L (4.40-5.60) X 10*6/uL Hgb 12.7 L (13.0-17.0) d/dL Hct 38.2 L (39.6-50.0) % MCH 32.1 H (27.0-32.0) pg BUN 4.2 L (9.0-27.0) mg/dL BUN/Creatinine Ratio 4.67 L (12.00-20.00) Ratio Microbiology - Last 24 Hours (Table) 10/22/23 15:02 Blood Culture - Preliminary Blood Assessment and Plan (1) Leukocytosis Status: Acute Code(s): D72.829 - ELEVATED WHITE BLOOD CELL COUNT, UNSPECIFIED SNOMED Code(s): 344905410 Plan: 1patient with leukocytosis which is likely multifactorial clinically doubt cellulitis patient did have a negative chest x-ray here has been negative there is reported history of nausea and vomiting and some week abdominal pain will need to rule out intra-abdominal source. 2 CT of abdominal pelvis diffuse thickening of the wall of the cecum and proximal ascending colon concerning for inflammatory process 3patient has shown clinical improvement, white count normalized, Patient will finish therapy with oral Augmentin, discussed with the admitting team working on discharge Dictation was produced using [employer] dictation software. please excuse any grammatical, word or spelling errors. Time with Patient: Less than 30
== END 2023-07-12 16:23 | disposition home or self-care (01) ==
LOC: SUPCPDRO 15:07 → EC 15:07 → 4SSUR 20:08 → INTOOBSV 20:08 → 4SSUR 20:13 → UNDODISIN 07-12 16:23
PROVIDERS: ADMIT Hospitalist; ATTEND Hospitalist
DX: G92.8 Other toxic encephalopathy (principal); E86.0 Dehydration; D72.829 Elevated white blood cell count, unspecified; L03.116 Cellulitis of left lower limb; S81.012A Laceration without foreign body, left knee, initial encounter; X58.XXXA Exposure to other specified factors, initial encounter; K52.9 Noninfective gastroenteritis and colitis, unspecified; F25.0 Schizoaffective disorder, bipolar type; N17.9 Acute kidney failure, unspecified; K04.7 Periapical abscess without sinus; F41.9 Anxiety disorder, unspecified; F12.10 Cannabis abuse, uncomplicated; F17.290 Nicotine dependence, other tobacco product, uncomplicated; Z79.899 Other long term (current) drug therapy; Z88.1 Allergy status to other antibiotic agents
CPT/HCPCS: 96361 ×3; 96366 ×4; 96367; 96365; 99291; 36415; 93005; 84439; 80053 ×2; 80048 ×3; 84443 ×2; 82140; 82550; 80178 ×2; 83735; 84484; 85025 ×2; 85027 ×3; 85610; 85730; 86140 ×2; 81003; 81001; 87040; 80306; 80320; 84145; 71046; 70450; 74177; G0378 ×5; J0690 ×2; J0295 ×4; Q9967; 99285

== ENCOUNTER 2023-07-19 23:55 | Observation (INO) | payer OTHER ==
[2023-07-20] MEDS ORDERED: SODIUM CHLORIDE 0.9% 500 ML 500 ML IV ONE (00:57)
[2023-07-20 01:43] LABS: Basophils % (A) 0 %; Eosinophils # (A) 0.2 k/uL (0-0.7); Eosinophils % (A) 2 %; HCT 33.4 % (39.0-53.0); HGB 11.6 gm/dL (13.0-17.5); Lymphocytes # (A) 1.2 k/uL (1.0-4.8); Lymphocytes % (A) 12 %; MCH 32.8 pg (25.0-35.0); MCHC 34.6 g/dL (31.0-37.0); MCV 94.9 fL (80.0-100.0); Mean Platelet Volume 7.6; Monocytes # (A) 0.8 k/uL (0-1.0); Monocytes % (A) 8 %; Neutrophils # (A) 7.4 k/uL (1.3-7.7); Neutrophils % (A) 75 %; Platelet Count 291 k/uL (150-450); RBC 3.52 m/uL (4.30-5.90); RDW 13.5 % (11.5-15.5); WBC 9.9 k/uL (3.8-10.6)
[2023-07-20 01:48] LABS: INR 1.1 (<1.2); Partial Thromboplastin Time 27.7 sec (22.0-30.0); Prothrombin Time 11.7 sec (10.0-12.5)
[2023-07-20 02:05] LABS: ALT 61 U/L (4-49); AST 104 U/L (17-59); African American GFR (CKD) >90 (>60 ml/min/1.73 sqM); Albumin 3.9 g/dL (3.5-5.0); Alcohol <10 mg/dL; Alkaline Phosphatase 66 U/L (38-126); Anion Gap 9 mmol/L; Blood Urea Nitrogen 13 mg/dL (9-20); Calcium 8.6 mg/dL (8.4-10.2); Carbon Dioxide 26 mmol/L (22-30); Chloride 98 mmol/L (98-107); Glucose 81 mg/dL (74-99); Lithium <0.2 mmol/L; Non-African American GFR(CKD) >90 (>60 ml/min/1.73 sqM); Potassium 3.8 mmol/L (3.5-5.1); Sodium 133 mmol/L (137-145); Total Bilirubin 0.5 mg/dL (0.2-1.3)
--- NOTE | 2023-07-20 02:08 | XR ---
EXAM: XR Chest, 2 Views CLINICAL HISTORY: ITS.REASON XR Reason: altered mental status TECHNIQUE: Frontal and lateral views of the chest. COMPARISON: XR Chest dated 07/08/23 FINDINGS: Lungs: Minimal linear atelectasis in the right mid lung. No focal consolidation. Pleural space: Unremarkable. No pneumothorax. Heart: Unremarkable. No cardiomegaly. Mediastinum: Unremarkable. Bones/joints: Unremarkable. IMPRESSION: Minimal linear atelectasis in the right mid lung. Otherwise negative.
[2023-07-20 02:11] LABS: Valproic Acid (Depakene) 62.1 ug/mL
--- NOTE | 2023-07-20 02:18 | CT ---
EXAM: CT Head Without Intravenous Contrast CLINICAL HISTORY: ITS.REASON CT Reason: AMS, fall TECHNIQUE: Axial computed tomography images of the head/brain without intravenous contrast. CTDI is 57.4 mGy and DLP is 1523.5 mGy-cm. This CT exam was performed using one or more of the following dose reduction techniques: automated exposure control, adjustment of the mA and/or kV according to patient size, and/or use of iterative reconstruction technique. COMPARISON: No relevant prior studies available. FINDINGS: Brain: Mild volume loss with prominent ventricles and sulci. Mild periventricular white matter hypoattenuation likely reflects chronic small vessel disease. No hemorrhage. Ventricles: See above. Bones/joints: Unremarkable. No acute fracture. Soft tissues: Unremarkable. Sinuses: Unremarkable as visualized. No acute sinusitis. Mastoid air cells: Unremarkable as visualized. No mastoid effusion. Oral cavity: 2.3 cm well-defined cystic lesion in the anterior midline hard palate. IMPRESSION: 1. No evidence of acute intracranial abnormality or skull fracture. 2. 2.3 cm well-defined cystic lesion in the anterior midline hard palate. 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 EXAM: CT Cervical Spine Without Intravenous Contrast CLINICAL HISTORY: ITS.REASON CT Reason: AMS, fall TECHNIQUE: Axial computed tomography images of the cervical spine without intravenous contrast. CTDI is 57.4 mGy and DLP is 1246.7 mGy-cm. This CT exam was performed using one or more of the following dose reduction techniques: automated exposure control, adjustment of the mA and/or kV according to patient size, and/or use of iterative reconstruction technique. COMPARISON: No relevant prior studies available. FINDINGS: Vertebrae: Unremarkable. No acute fracture. Discs/spinal canal/neural foramina: No acute findings. No spinal canal stenosis. Soft tissues: Unremarkable. IMPRESSION: Normal cervical spine CT.
[2023-07-20 03:37] LABS: Appearance,Urine Clear (Clear); Bilirubin,Urine Negative (Negative); Blood,Urine Negative (Negative); Color,Urine Colorless; Glucose,Urine (UA) Negative (Negative); Ketones,Urine 1+ (Negative); Leukocyte Esterase,Urine Negative (Negative); Nitrite,Urine Negative (Negative); Protein,Urine Negative (Negative); Specific Gravity,Urine 1.009 (1.001-1.035); Urobilinogen,Urine <2.0 mg/dL (<2.0)
[2023-07-20 03:46] LABS: Amphetamine Screen,Urine Not Detected (NotDetected); Barbiturate Screen,Urine Not Detected (NotDetected); Benzodiazepines Screen,Urine Detected (NotDetected); Cocaine Screen,Urine Not Detected (NotDetected); Methadone Screen, Urine Not Detected (NotDetected); Opiate Screen,Urine Not Detected (NotDetected); Oxycodone Screen, Urine Not Detected (NotDetected); Phencyclidine Screen,Urine Not Detected (NotDetected); Tricyclic Antidepressant,Urine Detected (NotDetected); Urn Cannabinoid Scrn Detected (NotDetected)
[2023-07-20] MEDS ORDERED: NALOXONE 0.4 MG/ML 1 ML VIAL IV PRN (04:08)
--- NOTE | 2023-07-20 04:20 | ED ---
Altered Mental Status HPI - General Chief Complaint: Altered Mental Status Stated Complaint: Fall Time Seen by Provider: 07/20/23 00:49 Source: patient Mode of arrival: wheelchair Limitations: no limitations - History of Present Illness Initial Comments: 43-year-old male presenting with chief complaint of altered mental status and multiple falls. Patient fell around 3-4 hours prior to arrival in the bathroom hitting his head on the bathtub. He reports multiple falls over the last 2 days. Patient was admitted to our facility on 07/08 for lithium toxicity, dehydration, a chaotic, and colitis. He was discharged on 1024. Mother states that at that time he had several medication changes, this includes stopping lithium, and the addition of Depakote and trazodone. Mother states that the patient does smoke marijuana regularly. She noticed a dramatic change and confusion that started yesterday. Patient is unable to follow basic commands and perform basic tasks. He denies chest pain, difficulty breathing, abdominal pain, nausea, vomiting, dizziness. - Related Data Home Medications Medication Instructions Recorded Confirmed FLUoxetine HCL [PROzac] 80 mg PO DAILY 07/08/23 07/20/23 QUEtiapine [SEROquel] 50 mg PO DAILY PRN 07/08/23 07/20/23 busPIRone HCL 20 mg PO TID 07/08/23 07/20/23 cloNIDine HCL [Catapres] 0.1 mg PO DAILY PRN 07/08/23 07/20/23 cloNIDine HCL [Kapvay] 0.2 mg PO HS 07/08/23 07/20/23 Previous Rx's Medication Instructions Recorded Divalproex ER [Depakote ER] 1,000 mg PO HS 30 Days #60 tab 07/11/23 QUEtiapine [SEROquel] 600 mg PO HS 30 Days #90 tab 07/11/23 traZODone HCL [Desyrel] 100 mg PO HS PRN 30 Days #30 tab 07/11/23 Allergies Allergy/AdvReac Type Severity Reaction Status Date / Time erythromycin base AdvReac Nausea & Verified 07/20/23 08:38 [From Erythrocin] Vomiting Review of Systems ROS Statement: Those systems with pertinent positive or pertinent negative responses have been documented in the HPI. ROS Other: All systems not noted in ROS Statement are negative. Past Medical History Past Medical History: No Reported History History of Any Multi-Drug Resistant Organisms: None Reported Past Surgical History: Tonsillectomy Past Anesthesia/Blood Transfusion Reactions: No Reported Reaction Past Psychological History: Anxiety, Depression Smoking Status: Former smoker, Vaper Past Alcohol Use History: None Reported Past Drug Use History: Marijuana General Exam Limitations: altered mental status General appearance: alert, obtunded Head exam: Present: atraumatic, normocephalic, normal inspection Eye exam: Present: normal appearance, EOMI Neck exam: Present: normal inspection, full ROM Respiratory exam: Present: normal lung sounds bilaterally. Absent: respiratory distress, wheezes, rales, rhonchi, stridor Cardiovascular Exam: Present: regular rate, normal rhythm, normal heart sounds. Absent: systolic murmur, diastolic murmur, rubs, gallop, clicks Neurological exam: Present: alert, altered Psychiatric exam: Present: normal affect, normal mood Skin exam: Present: warm, dry, intact, normal color. Absent: rash Course Vital Signs 07/19/23 07/20/23 07/20/23 23:59 02:35 05:24 Temperature 98.4 F 98 F 98 F Pulse Rate 96 61 60 Respiratory 18 19 17 Rate Blood Pressure 151/96 121/80 118/80 O2 Sat by Pulse 98 100 98 Oximetry 07/20/23 07/20/23 07/20/23 08:00 08:50 11:04 Temperature 97.6 F Pulse Rate 55 L 68 71 Respiratory 20 18 Rate Blood Pressure 127/91 115/76 O2 Sat by Pulse 98 97 Oximetry 07/20/23 07/20/23 07/20/23 14:32 16:25 17:21 Temperature Pulse Rate 77 66 64 Respiratory 20 20 18 Rate Blood Pressure 119/85 114/82 112/85 O2 Sat by Pulse 97 98 98 Oximetry Medical Decision Making - Medical Decision Making Was pt. sent in by a medical professional or institution (, PA, PMP CERTIFIED PROJECT MANAGER, urgent care, hospital, or fci...) When possible be specific @ -No Did you speak to anyone other than the patient for history (EMS, parent, family, police, friend...)? What history was obtained from this source @ -History supplemented by mother Did you review nursing and triage notes (agree or disagree)? Why? @ -I reviewed and agree with nursing and triage notes Were old charts reviewed (outside hosp., previous admission, EMS record, old EKG, old radiological studies, urgent care reports/EKG's, fci records)? Report findings @ -No old charts were reviewed Differential Diagnosis (chest pain, altered mental status, abdominal pain women, abdominal pain men, vaginal bleeding, weakness, fever, dyspnea, syncope, headache, dizziness, GI bleed, back pain, seizure, CVA, palpatations, mental health, musculoskeletal)? @ -[facility] Differential Altered Mental Status: Hypoglycemia, DKA, hypercapnia, ETOH, overdose, CO poisoning, trauma, myxedema coma, HTN encephalopathy, infection, encephalitis, psychosis, intercranial hemorrhage, hepatic encephalopathy, meningitis, CVA this is not meant to be an all-inclusive list EKG interpreted by me (3pts min.). @ -As above X-rays interpreted by me (1pt min.). @ -None done CT interpreted by me (1pt min.). @ -CT of the brain and cervical spine shows no acute intracranial process or cervical spine fracture. 2.3 cm well-defined cystic lesion in the anterior midl ine hard palate. 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 min.). @ -None done What testing was considered but not performed or refused? (CT, X-rays, U/S, labs)? Why? @ -None What meds were considered but not given or refused? Why? @ -None Did you discuss the management of the patient with other professionals (professionals i.e. , PA, PMP CERTIFIED PROJECT MANAGER, lab, RT, psych nurse, dialysis social worker, adjuster and inspector, teacher, chief supply chain officer, case repairer)? Give summary @ -Case discussed with the admitting physician who accepted admission Was smoking cessation discussed for >3mins.? @ -No Was critical care preformed (if so, how long)? @ -No Were there social determinants of health that impacted care today? How? (Homelessness, low income, unemployed, alcoholism, drug addiction, transportation, low edu. Level, literacy, decrease access to med. care, snf, rehab)? @ -No Was there de-escalation of care discussed even if they declined (Discuss DNR or withdrawal of care, Hospice)? DNR status @ -No What co-morbidities impacted this encounter? (DM, HTN, Smoking, COPD, CAD, Cancer, CVA, ARF, Chemo, Hep., AIDS, mental health diagnosis, sleep apnea, morbid obesity)? @ -None Was patient admitted / discharged? Hospital course, mention meds given and route, prescriptions, significant lab abnormalities, going to OR and other pertinent info. @ -43-year-old male presenting with chief complaint of altered mental status. He was treated here recently for lithium toxicity, [place], colitis. Patient has had multiple falls at home. Physical exam is conducted. Lab work is essentially unremarkable and CT shows no acute findings. Patient will be adm itted for delirium and inability to ambulate with consultation for psychiatry. Mother is agreeable with this plan. I discussed this case with my attending Dr. Renee Undiagnosed new problem with uncertain prognosis? @ -No Drug Therapy requiring intensive monitoring for toxicity (Heparin, Nitro, Insulin, Cardizem)? @ -No Were any procedures done? @ -No Diagnosis/symptom? @ -Altered mental status Acute, or Chronic, or Acute on Chronic? @ -acute Uncomplicated (without systemic symptoms) or Complicated (systemic symptoms)? @ -Complicated Side effects of treatment? @ -No Exacerbation, Progression, or Severe Exacerbation? @ -No Poses a threaty to life or bodily function? How? (Chest pain, USA, LA, pneumonia, PE, COPD, DKA, ARF, appy, cholecystitis, CVA, Diverticulitis, H omicidal, Suicidal, threat to staff... and all critical care pts) @ yes] - Lab Data Result diagrams: 07/20/23 01:15 07/20/23 01:15 Lab Results 07/20/23 07/20/23 07/20/23 Range/Units 01:15 01:15 01:15 WBC 9.9 (3.8-10.6) k/uL RBC 3.52 L (4.30-5.90) m/uL Hgb 11.6 L (13.0-17.5) gm/dL Hct 33.4 L (39.0-53.0) % MCV 94.9 (80.0-100.0) fL MCH 32.8 (25.0-35.0) pg MCHC 34.6 (31.0-37.0) g/dL RDW 13.5 (11.5-15.5) % Plt Count 291 (150-450) k/uL MPV 7.6 Neutrophils % 75 % Lymphocytes % 12 % Monocytes % 8 % Eosinophils % 2 % Basophils % 0 % Neutrophils # 7.4 (1.3-7.7) k/uL Lymphocytes # 1.2 (1.0-4.8) k/uL Monocytes # 0.8 (0-1.0) k/uL Eosinophils # 0.2 (0-0.7) k/uL Basophils # 0.0 (0-0.2) k/uL PT 11.7 (10.0-12.5) sec INR 1.1 (<1.2) APTT 27.7 (22.0-30.0) sec Sodium 133 L (137-145) mmol/L Potassium 3.8 (3.5-5.1) mmol/L Chloride 98 (98-107) mmol/L Carbon Dioxide 26 (22-30) mmol/L Anion Gap 9 mmol/L BUN 13 (9-20) mg/dL Creatinine 0.82 (0.66-1.25) mg/dL Est GFR (CKD-EPI)AfAm >90 (>60 ml/min/1.73 sqM) Est GFR (CKD-EPI)NonAf >90 (>60 ml/min/1.73 sqM) Glucose 81 (74-99) mg/dL Calcium 8.6 (8.4-10.2) mg/dL Total Bilirubin 0.5 (0.2-1.3) mg/dL AST 104 H (17-59) U/L ALT 61 H (4-49) U/L Alkaline Phosphatase 66 (38-126) U/L Ammonia (<30) umol/L Troponin I (0.000-0.034) ng/mL Total Protein 6.0 L (6.3-8.2) g/dL Albumin 3.9 (3.5-5.0) g/dL TSH 3.930 (0.465-4.680) mIU/L Urine Color Urine Appearance (Clear) Urine pH (5.0-8.0) Ur Specific [place] (1.001-1.035) Urine Protein (Negative) Urine Glucose (UA) (Negative) Urine Ketones (Negative) Urine Blood (Negative) Urine Nitrite (Negative) Urine Bilirubin (Negative) Urine Urobilinogen (<2.0) mg/dL Ur Leukocyte Esterase (Negative) Urine Opiates Screen (NotDetected) Ur Oxycodone Screen (NotDetected) Urine Methadone Screen (NotDetected) Ur Propoxyphene Screen (NotDetected) Ur Barbiturates Screen (NotDetected) Valproic Acid 62.1 ug/mL U Tricyclic Antidepress (NotDetected) Ur Phencyclidine Scrn (NotDetected) Ur Amphetamines Screen (NotDetected) U Methamphetamines Scrn (NotDetected) U Benzodiazepines Scrn (NotDetected) Learned <0.2 mmol/L Urine Cocaine Screen (NotDetected) U Marijuana (THC) Screen (NotDetected) Serum Alcohol <10 mg/dL 07/20/23 07/20/23 07/20/23 Range/Units 01:15 01:15 02:38 WBC (3.8-10.6) k/uL RBC (4.30-5.90) m/uL Hgb (13.0-17.5) gm/dL Hct (39.0-53.0) % MCV (80.0-100.0) fL MCH (25.0-35.0) pg MCHC (31.0-37.0) g/dL RDW (11.5-15.5) % Plt Count (150-450) k/uL MPV Neutrophils % % Lymphocytes % % Monocytes % % Eosinophils % % Basophils % % Neutrophils # (1.3-7.7) k/uL Lymphocytes # (1.0-4.8) k/uL Monocytes # (0-1.0) k/uL Eosinophils # (0-0.7) k/uL Basophils # (0-0.2) k/uL PT (10.0-12.5) sec INR (<1.2) APTT (22.0-30.0) sec Sodium (137-145) mmol/L Potassium (3.5-5.1) mmol/L Chloride (98-107) mmol/L Carbon Dioxide (22-30) mmol/L Anion Gap mmol/L BUN (9-20) mg/dL Creatinine (0.66-1.25) mg/dL Est GFR (CKD-EPI)AfAm (>60 ml/min/1.73 sqM) Est GFR (CKD-EPI)NonAf (>60 ml/min/1.73 sqM) Glucose (74-99) mg/dL Calcium (8.4-10.2) mg/dL Total Bilirubin (0.2-1.3) mg/dL AST (17-59) U/L ALT (4-49) U/L Alkaline Phosphatase (38-126) U/L Ammonia 26 (<30) umol/L Troponin I <0.012 (0.000-0.034) ng/mL Total Protein (6.3-8.2) g/dL Albumin (3.5-5.0) g/dL TSH (0.465-4.680) mIU/L Urine Color Colorless Urine Appearance Clear (Clear) Urine pH 7.0 (5.0-8.0) Ur Specific [place] 1.009 (1.001-1.035) Urine Protein Negative (Negative) Urine Glucose (UA) Negative (Negative) Urine Ketones 1+ H (Negative) Urine Blood Negative (Negative) Urine Nitrite Negative (Negative) Urine Bilirubin Negative (Negative) Urine Urobilinogen <2.0 (<2.0) mg/dL Ur Leukocyte Esterase Negative (Negative) Urine Opiates Screen Not Detected (NotDetected) Ur Oxycodone Screen Not Detected (NotDetected) Urine Methadone Screen Not Detected (NotDetected) Ur Propoxyphene Screen Not Detected (NotDetected) Ur Barbiturates Screen Not Detected (NotDetected) Valproic Acid ug/mL U Tricyclic Antidepress Detected H (NotDetected) Ur Phencyclidine Scrn Not Detected (NotDetected) Ur Amphetamines Screen Not Detected (NotDetected) U Methamphetamines Scrn Not Detected (NotDetected) U Benzodiazepines Scrn Detected H (NotDetected) Learned mmol/L Urine Cocaine Screen Not Detected (NotDetected) U Marijuana (THC) Screen Detected H (NotDetected) Serum Alcohol mg/dL Disposition Clinical Impression: Altered mental status Disposition: ADMITTED IP TO THIS [facility] Condition: Serious Time of Disposition: 04:20
[2023-07-20] MEDS: SODIUM CHLORIDE 0.9% 1,000 ML IV SCH ×2 (05:58→16:39)
[2023-07-20] MEDS ORDERED: polyethylene glycoL 3350 17 GM POWD.PACK PO PRN (11:24)
--- NOTE | 2023-07-20 11:24 | P.HPIM ---
History of Present Illness 42-year-old male came in with complaints of altered mental status and multiple falls patient has been unstable. Patient has history of a schizoaffective disorder and aspirin are a the patient and the mother patient has PTSD as well. Patient was extensively evaluated during last hospitalization was treated for colitis completed his antibiotic therapy with Augmentin yesterday. Patient does use marijuana as well and patient is on multiple medications that can cause unstable gait and the confusion. The treated for lithium toxicity during last hospitalization and patient is presently on Seroquel buspirone fluoxetine Depakote. CT of the head did not show any significant abnormality. Patient is unstable standing up. Patient was comparing of constipation and some abdominal discomfort beyond which he denied any symptoms of UTI patient doesn't have any evidence of sepsis at this time. REVIEW OF SYSTEMS: All other review of systems are negative except those mentioned above PHYSICAL EXAMINATION: GENERAL: The patient is alert and oriented x3, not in any acute distress. Well developed, well nourished. HEENT: Pupils are round and equally reacting to light. EOMI. No scleral icterus. No conjunctival pallor. Normocephalic, atraumatic. No pharyngeal erythema. No thyromegaly. CARDIOVASCULAR: S1 and S2 present. No murmurs, rubs, or gallops. PULMONARY: Chest is clear to auscultation, no wheezing or crackles. ABDOMEN: Soft, nontender, nondistended, normoactive bowel sounds. No palpable organomegaly. MUSCULOSKELETAL: No joint swelling or deformity. EXTREMITIES: No cyanosis, clubbing, or pedal edema. NEUROLOGICAL: Patient does have unstable gait SKIN: No rashes. Assessment and plan -Altered mental status, unstable gait: Secondary to side effects from psychiatric medications there is no evidence of sepsis at this time patient will not require any more antibiotics no need for neurological consultation. But the will need psychiatry to evaluate the patient and make changes to his medications. -Hyponatremia can be secondary to Depakote-induced SIADH or slight dehydration for which patient was started on IV fluids -Schizoaffective disorder -Generalized weakness for which we'll consult physical therapy and occupational therapy -Marijuana use: Counseling was provided. Patient uses this for anxiety and his only thing that helps him more than anything for anxiety. DVT prophylaxis: Lovenox Past Medical History Past Medical History: No Reported History History of Any Multi-Drug Resistant Organisms: None Reported Past Surgical History: Tonsillectomy Past Anesthesia/Blood Transfusion Reactions: No Reported Reaction Past Psychological History: Anxiety, Depression Smoking Status: Former smoker, Vaper Past Alcohol Use History: None Reported Past Drug Use History: Marijuana Medications and Allergies Home Medications Medication Instructions Recorded Confirmed Type FLUoxetine HCL [PROzac] 80 mg PO DAILY 07/08/23 07/20/23 History QUEtiapine [SEROquel] 50 mg PO DAILY PRN 07/08/23 07/20/23 History busPIRone HCL 20 mg PO TID 07/08/23 07/20/23 History cloNIDine HCL [Catapres] 0.1 mg PO DAILY PRN 07/08/23 07/20/23 History cloNIDine HCL [Kapvay] 0.2 mg PO HS 07/08/23 07/20/23 History Divalproex ER [Depakote ER] 1,000 mg PO HS 30 Days #60 tab 07/11/23 07/20/23 Rx QUEtiapine [SEROquel] 600 mg PO HS 30 Days #90 tab 07/11/23 07/20/23 Rx traZODone HCL [Desyrel] 100 mg PO HS PRN 30 Days #30 tab 07/11/23 07/20/23 Rx Allergies Allergy/AdvReac Type Severity Reaction Status Date / Time erythromycin base AdvReac Nausea & Verified 07/20/23 08:38 [From Erythrocin] Vomiting Physical Exam Vitals: Vital Signs Temp Pulse Resp BP Pulse Ox 07/20/23 11:04 71 18 115/76 97 07/20/23 08:50 97.6 F 68 20 127/91 98 07/20/23 08:00 55 L 07/20/23 05:24 98 F 60 17 118/80 98 07/20/23 02:35 98 F 61 19 121/80 100 07/19/23 23:59 98.4 F 96 18 151/96 98 Intake and Output 07/19/23 07/20/23 07/20/23 22:59 06:59 14:59 Other: Weight 72.575 kg Results CBC & Chem 7: 07/20/23 01:15 07/20/23 01:15 Labs: Abnormal Lab Results - Last 24 Hours (Table) 07/20/23 07/20/23 07/20/23 Range/Units 01:15 01:15 02:38 RBC 3.52 L (4.30-5.90) m/uL Hgb 11.6 L (13.0-17.5) gm/dL Hct 33.4 L (39.0-53.0) % Sodium 133 L (137-145) mmol/L AST 104 H (17-59) U/L ALT 61 H (4-49) U/L Total Protein 6.0 L (6.3-8.2) g/dL Urine Ketones 1+ H (Negative) U Tricyclic Antidepress Detected H (NotDetected) U Benzodiazepines Scrn Detected H (NotDetected) U Marijuana (THC) Screen Detected H (NotDetected)
[2023-07-20] MEDS: ENOXAPARIN 40 MG/0.4 ML SYRINGE SQ SCH (12:03)
[2023-07-20] MEDS ORDERED: QUEtiapine 50 MG TAB PO PRN (12:49)
[2023-07-20] MEDS: FLUoxetine HCL 20 MG CAP PO SCH (13:15)
--- NOTE | 2023-07-20 14:53 | P.CN ---
Psychiatric Consult - . Consult date: 07/20/23 Consult:: 07/20/23 13:08 IDENTIFYING DATA: This patient is a 43 yo male, currently lives in a mobile home, , has two kids, unemployed REASON FOR REFERRAL: Psychiatry was consulted for psychiatric evaluation after recent med changes. HISTORY OF PRESENT ILLNESS: The patient presented to the hospital on 07/20, states that he was feeling confused and altered mental status. He claims that he is having several falls and apparently stated that he was hitting his head on the bathtub. Patient had recent psychiatric medication changes during his last medical admission. Patient was taken off of lithium and placed on 2 Depakote however states that when he got home he was not tolerating it well. He claims that he was feeling confused, states that he was feeling "off balance" and fell multiple times. His urine drug is positive for TCAs, benzodiazepines and marijuana. AST and ALT were elevated at 104/61. He states that he was feeling confused and dizzy, states that he is weak in his legs. He claims that he was having racing thoughts as well recently, states that his anxiety and depression of an elevated. Claims that he is also hearing voices of "conversations in the background". Claims that his sleep has been poor, appetite has been fair. He claims that he feels unsafe walking and unsafe going home. He was endorsing paranoia as well. He has fairly limited insight and judgment at this time. At this time patient denies any suicidal or homical ideations, intent or plan. Patients admits to using marijuana frequently about a half an ounce a week. States that he vapes nicotine. denies any other rec drug use. PAST PSYCHIATRIC HISTORY: Patient has a a history of bipolar disorder and apparently schizophrenia. Patient is currently on Lithobid, BuSpar, Seroquel and clonidine along with Prozac. was recently started on depakote after lithium was discontinued. Patient apparently was last admitted to the mental health unit in [place] about 2 years ago and has had several admissions prior to that. Patient apparently follows up at [facility] in [facility]. Apparently patient had episodes of cutting when he was a teenager. PAST MEDICAL HISTORY: Past Medical History: No Reported History History of Any Multi-Drug Resistant Organisms: None Reported Past Surgical History: No Surgical Hx Reported Past Psychological History: Anxiety, Depression Smoking Status: Vaper Past Alcohol Use History: None Reported Past Drug Use History: Marijuana. ALLERGIES: as per EMR. CHEMICAL DEPENDENCY HISTORY: as per HPI. FAMILY PSYCHIATRIC/SUBSTANCE USE HISTORY: Apparently patient's grandmother and aunt both had severe mental illness likely schizophrenia SOCIAL HISTORY: Patient was born and raised in [place] [facility], states that he completed high school and did some college. States that he did go to assisted for drug-related issues several years ago. He has 2 kids, he is unemployed. He is also . He lives in a mobile home alone. MENTAL STATUS EXAM: General Appearance: Patient appears to be thin, unshaven, stated age is alert, attempts to cooperate. Patient appears to have fair hygiene and grooming wearing hospital gown with fair eye contact. Behavior: Patient is calmly lying in bed without any agitated behavior. Speech: Patient's speech is fluent and nonpressured. Hesitant Mood/Affect: Patient reports their mood is "not good", affect is congruent and constricted Suicidality/Homicidality: Patient denies having any suicidal or homicidal ideation intent or plan. Perceptions: Patient denies any visual hallucinations and denies any auditory hallucinations Though content/process: There is no evidence of any delusional thought content and thought process is linear and goal-directed. Desha. Memory and concentration: AOX2-3, does not know todays date however does know the month and year, fair attention span. Can spell "WORLD" backwards Judgment and insight: poor/impaired IMPRESSIONS: schizoaffective disorder possible medication adverse effect cannabis use disorder nicotine dependence PLAN: -At this time patient DOES meet criteria for inpatient psychiatric admission -Delirium precautions recommended with patient including - avoiding use of narcotics and NEGOTIATOR sedatives, limit anticholinergic medications when possible, frequent re-orientation, minimize use of restraints, open window shades during the day and close them at night -Would recommend the following medication changes/additions: hold depakote, I will replace with Lamictal 25 mg twice a day for mood stabilization. continue with prozac and clonidine as home dose. Increase seroquel 600 mg qhs + 200 mg qhs for mood stabilization -Angledozer Operator spoke with patient about substance abuse and the harmful effects on medical and mental health, patient verbally understood and agreed. -Communicated plan to patient's nurse -Once patient is medically cleared and then she may be transferred to a psychiatric bed for further psychiatric treatment and medication adjustments. -At this time psychiatry will sign off. -Please contact with any questions. 07/20/23 14:47
[2023-07-20] MEDS: QUEtiapine 200 MG TAB PO SCH ×2 (16:25→21:28)
[2023-07-20] MEDS: lamoTRIgine 25 MG TAB PO SCH ×2 (16:25→20:56)
[2023-07-20] MEDS: busPIRone HCl 10 MG TAB PO SCH ×2 (16:25→20:56)
[2023-07-20 19:08] LABS: Glucose,Whole Blood 94 mg/dL (70-110)
[2023-07-20] MEDS: CLONIDINE HCL 0.1 MG PO SCH (21:30)
[2023-07-20] MEDS: ACETAMINOPHEN TAB 325 MG TAB PO PRN (22:06)
[2023-07-21 05:45] LABS: Glucose,Whole Blood 117 mg/dL (70-110)
[2023-07-21] MEDS: SODIUM CHLORIDE 0.9% 1,000 ML IV SCH ×2 (06:12→17:27)
[2023-07-21] MEDS: QUEtiapine 200 MG TAB PO SCH ×2 (08:51→21:21)
[2023-07-21] MEDS: busPIRone HCl 10 MG TAB PO SCH ×3 (08:51→21:21)
[2023-07-21] MEDS: lamoTRIgine 25 MG TAB PO SCH ×2 (08:52→21:21)
[2023-07-21] MEDS: FLUoxetine HCL 20 MG CAP PO SCH (08:52)
[2023-07-21] MEDS: ENOXAPARIN 40 MG/0.4 ML SYRINGE SQ SCH (08:59)
[2023-07-21 10:39] LABS: ALT 45 U/L (4-49); AST 49 U/L (17-59); African American GFR (CKD) >90 (>60 ml/min/1.73 sqM); Albumin 3.5 g/dL (3.5-5.0); Albumin/Globulin Ratio 1.5; Alkaline Phosphatase 63 U/L (38-126); Anion Gap 9 mmol/L; Blood Urea Nitrogen 10 mg/dL (9-20); Calcium 8.8 mg/dL (8.4-10.2); Carbon Dioxide 26 mmol/L (22-30); Chloride 101 mmol/L (98-107); Globulin 2.4 g/dL; Glucose 100 mg/dL (74-99); Non-African American GFR(CKD) >90 (>60 ml/min/1.73 sqM); Potassium 4.1 mmol/L (3.5-5.1); Sodium 136 mmol/L (137-145); Total Bilirubin 0.3 mg/dL (0.2-1.3); Total Protein 5.9 g/dL (6.3-8.2)
[2023-07-21 11:15] LABS: Glucose,Whole Blood 133 mg/dL (70-110)
[2023-07-21] MEDS: ACETAMINOPHEN TAB 325 MG TAB PO PRN ×2 (13:06→18:36)
--- NOTE | 2023-07-21 13:19 | P.DS ---
Providers Date of admission: 07/20/23 04:19 Attending physician: Leobardo Deshpande Consults: 07/20/23 04:18 Consult Physician Stat Consulting Provider: Ahsan Cannon Reason/Comments: delirium, recent med changes Do you want consulting provider notified?: Already Contacted Primary care physician: Stated None Hospital Course: Final Diagnosis -Altered mental status, unstable gait: Secondary to side effects from psychiatric medications patient had recent medication changes outpatient -Fall at home secondary to above -Hyponatremia can be secondary to Depakote-induced SIADH or slight dehydration improved with IV fluids -Schizoaffective disorder -Generalized weakness -Marijuana use: Counseling was provided. Patient uses this for anxiety and per patient this only thing that helps him more than anything for anxiety. -Full Code Discharge Disposition Patient is stable for transfer to mental health unit for IP psychiatry evaluation. Patient is cleared medically. Continue psychiatric medications as recommended. Hospital Course 42-year-old male came in with complaints of altered mental status and multiple falls patient has been unstable. Patient has history of a schizoaffective disorder, anxiety and depression, possible history of PTSD. Patient was extensively evaluated during last hospitalization was treated for colitis completed his antibiotic therapy with Augmentin yesterday. Patient does use marijuana as well and patient is on multiple medications that can cause unstable gait and the confusion. The treated for lithium toxicity during last hospitalization and patient is presently on Seroquel buspirone fluoxetine Depakote. CT of the head did not show any significant abnormality. Patient was complaining of constipation and some abdominal discomfort,which was relieved with miralax he did have a BM. He had hyponatremia on admission with sodium of 133, as well as elevated AST/ALT. Did improve with IV hydration. Liver enzymes are normal now. Sodium 136. Urinalysis is negative. UDS showings TCA's benzodiazepines and marijuana. Patient is evaluated today with his mother at the bedside. He is alert x 3. He is agreeing to IP psychiatric evaluation as recommended by psychiatry. Medications have been adjusted. His lungs are clear S1 S2 auscultated, abdomen is soft and nontender. Focal neurological exam negative. He has some generalized weakness, has been up ambulating. Cleared medically. Please see medication reconciliation for a list of current medications. Thank you for allowing us to participate in the care of this patient. The impression and plan of care has been dictated by Roxana Joaquin, Nurse Practitioner as directed. Dr. Giles MD I have performed a history and physical examination and medical decision making of this patient, discussed the same with the dictator, and agree with the dictators assessment and plan as written, documented as a scribe. Based on total visit time, I have performed more than 50% of this visit. Patient Condition at Discharge: Fair Plan - Discharge Summary Discharge Rx Participant: No New Discharge Prescriptions: New QUEtiapine [SEROquel] 200 mg PO DAILY tab lamoTRIgine [LaMICtal] 25 mg PO BID tab polyethylene glycoL 3350 [Miralax] 17 gm PO DAILY PRN packet PRN Reason: Constipation Continue QUEtiapine [SEROquel] 600 mg PO HS 30 Days #90 tab FLUoxetine HCL [PROzac] 80 mg PO DAILY busPIRone HCL 20 mg PO TID Changed cloNIDine HCL [Catapres] 0.2 mg PO HS #0 Discontinued cloNIDine HCL [Kapvay] 0.2 mg PO HS Divalproex ER [Depakote ER] 1,000 mg PO HS 30 Days #60 tab QUEtiapine [SEROquel] 50 mg PO DAILY PRN PRN Reason: acute anxiety traZODone HCL [Desyrel] 100 mg PO HS PRN 30 Days #30 tab PRN Reason: Insomnia Discharge Medication List FLUoxetine HCL [PROzac] 80 mg PO DAILY 07/08/23 [History] busPIRone HCL 20 mg PO TID 07/08/23 [History] QUEtiapine [SEROquel] 600 mg PO HS 30 Days #90 tab 07/11/23 [Rx] QUEtiapine [SEROquel] 200 mg PO DAILY tab 07/21/23 [Rx] cloNIDine HCL [Catapres] 0.2 mg PO HS #0 07/21/23 [Rx] lamoTRIgine [LaMICtal] 25 mg PO BID tab 07/21/23 [Rx] polyethylene glycoL 3350 [Miralax] 17 gm PO DAILY PRN packet 07/21/23 [Rx] Follow up Appointment(s)/Referral(s): None,Stated [Primary Care Provider] - 1-2 days Activity/Diet/Wound Care/Special Instructions: Patient cleared medically for discharge to [facility]. Follow up with [facility] on discharge from hospital. Discharge Disposition: TRANSFER TO PSYCH HOSP/UNIT
[2023-07-21 16:39] LABS: Glucose,Whole Blood 97 mg/dL (70-110)
[2023-07-21] MEDS: CLONIDINE HCL 0.1 MG PO SCH (21:21)
[2023-07-22 01:11] LABS: Glucose,Whole Blood 171 mg/dL (70-110)
[2023-07-22 05:56] LABS: Glucose,Whole Blood 83 mg/dL (70-110)
[2023-07-22] MEDS: ACETAMINOPHEN TAB 325 MG TAB PO PRN ×2 (09:11→16:20)
[2023-07-22] MEDS: ENOXAPARIN 40 MG/0.4 ML SYRINGE SQ SCH ×2 (09:12→09:14)
[2023-07-22] MEDS: QUEtiapine 200 MG TAB PO SCH ×2 (09:12→20:37)
[2023-07-22] MEDS: lamoTRIgine 25 MG TAB PO SCH ×2 (09:12→20:37)
[2023-07-22] MEDS: SODIUM CHLORIDE 0.9% 1,000 ML IV SCH ×2 (09:12→20:48)
[2023-07-22] MEDS: FLUoxetine HCL 20 MG CAP PO SCH (09:12)
[2023-07-22] MEDS: busPIRone HCl 10 MG TAB PO SCH ×3 (09:12→20:37)
[2023-07-22] MEDS: traZODone HCL 100 MG TAB PO SCH (20:37)
[2023-07-22] MEDS: CLONIDINE HCL 0.1 MG PO SCH (20:42)
--- NOTE | 2023-07-23 | P.CN ---
Psychiatric Consult - . Consult date: 07/22/23 Consult:: Psychiatric consult Follow up. REASON FOR REFERRAL: Psychiatry was consulted for psychiatric evaluation after recent med changes. HISTORY OF PRESENT ILLNESS: This patient is a 43 yo male, currently lives in a mobile home, , has two kids, unemployed who presented to the hospital stated that he was feeling confused and altered mental status. The patient reported recent history of several falls, and had recent psychiatric medication changes during his last medical admission which he was not tolerating it well. He claimed that he was feeling confused, dizzy, stated that he is weak in his legs."off balance" and fell multiple times. His urine drug is positive for TCAs, benzodiazepines and marijuana. AST and ALT were elevated at 104/61. He reported experiencing racing thoughts with worsening depression and anxiety. The patient added having experiencing hearing voices and endorsing paranoia as well. The patient was reevaluated today by the psychiatric team based on the medical team's request. The patient was observed lying in his bed on the medical floor and reported feeling "relatively better." He mentioned still experiencing sporadic suicidal ideation and having trouble falling asleep due to sleep distu rbances. He reported feeling less confused than when he initially came to the hospital and noted a slight improvement in his balance. The patient continues to experience auditory hallucinations and paranoid thoughts. MENTAL STATUS EXAM: General Appearance: Patient appears to be thin, disheveled, stated age is alert. Patient appears to have fair hygiene and grooming wearing hospital gown with fair eye contact. Behavior: Patient is calmly lying in bed without any agitated behavior. Speech: Patient's speech is fluent and non pressured. Hesitant Mood/Affect: Patient reports their mood is "not good", affect is congruent and constricted Thought content: No delusions. Patient denies having any suicidal or homicidal ideation intent or plan. Perceptions: Patient denies any visual hallucinations but reports auditory hallucinations Though process: linear and goal-directed. Baker. Orientation: Not fully oriented to time. Judgment and insight: poor/impaired IMPRESSIONS: schizoaffective disorder possible medication adverse effect cannabis use disorder nicotine dependence PLAN: The patient continues to demonstrate limited insight and judgment. The patient still meets the criteria for inpatient psychiatric admission. Delirium precautions are recommended for the patient, including: Avoiding the use of narcotics and GLAZING MACHINE OPERATOR sedatives Limiting anticholinergic medications when possible Frequent reorientation Minimizing the use of restraints Opening window shades during the day and closing them at night Please continue with the medication changes/additions as per Dr. Cannon's i nstructions: Hold Depakote and replace it with Lamictal 25 mg twice a day for mood stabilization. Continue with Prozac and Clonidine as prescribed for home use. Continue Seroquel at 600 mg qhs + 200 mg qhs for mood stabilization. Once the patient is medically cleared, she may be transferred to a psychiatric bed for further psychiatric treatment and medication adjustments. Please feel free to contact us with any questions. 07/22/23 23:59
[2023-07-23] MEDS: busPIRone HCl 10 MG TAB PO SCH ×3 (10:09→22:01)
[2023-07-23] MEDS: QUEtiapine 200 MG TAB PO SCH ×2 (10:10→22:00)
[2023-07-23] MEDS: FLUoxetine HCL 20 MG CAP PO SCH (10:10)
[2023-07-23] MEDS: ENOXAPARIN 40 MG/0.4 ML SYRINGE SQ SCH ×2 (10:10→10:30)
[2023-07-23] MEDS: lamoTRIgine 25 MG TAB PO SCH ×2 (10:10→22:00)
--- NOTE | 2023-07-23 15:39 | P.PN ---
Subjective Progress Note Date: 07/23/23 Patient evaluated today up ambulating around the room. He reports mild generalized pain and bruising from frequent falls at home. Overall though he is feeling better. No hallucinations. Mentation improved. He is pending admission to IP psychiatry whether at [facility] or outside facility no beds available until atleast monday. Review of Systems Constitutional: Denied any fatigue denied any fever. Cardio vascular: denied any chest pain, palpitations Gastrointestinal: denied any nausea, vomiting, diarrhea Pulmonary: Denied any shortness of breath cough Neurologic denied any new focal deficits All inpatient medications were reviewed and appropriate changes in these medications as dictated in the interval history and assessment and plan. PHYSICAL EXAMINATION: GENERAL: The patient is alert and oriented x3, not in any acute distress. Well developed, well nourished. HEENT: Pupils are round and equally reacting to light. EOMI. No scleral icterus. No conjunctival pallor. Normocephalic, atraumatic. No pharyngeal erythema. No thyromegaly. CARDIOVASCULAR: S1 and S2 present. No murmurs, rubs, or gallops. PULMONARY: Chest is clear to auscultation, no wheezing or crackles. ABDOMEN: Soft, nontender, nondistended, normoactive bowel sounds. No palpable organomegaly. MUSCULOSKELETAL: No joint swelling or deformity. EXTREMITIES: No cyanosis, clubbing, or pedal edema. NEUROLOGICAL: Gross neurological examination did not reveal any focal deficits. SKIN: No rashes. Assessment -Altered mental status, unstable gait: Secondary to side effects from psychiatric medications patient had recent medication changes outpatient -Fall at home secondary to above -Hyponatremia can be secondary to Depakote-induced SIADH or slight dehydration improved with IV fluids -Schizoaffective disorder -Generalized weakness -Marijuana use: Counseling was provided. Patient uses this for anxiety and per patient this only thing that helps him more than anything for anxiety. -Full Code Plan Pending psychiatric bed placement for IP psych treatment. The impression and plan of care has been dictated by Roxana Joaquin Nurse Practitioner as directed. Dr. Giles MD I have performed a history and physical examination and medical decision making of this patient, discussed the same with the dictator, and agree with the dictators assessment and plan as written, documented as a scribe. Based on total visit time, I have performed more than 50% of this visit. Objective - Vital Signs Vital signs: Vital Signs Temp 98.1 F 07/23/23 14:20 Pulse 86 07/23/23 14:20 Resp 18 07/23/23 14:20 BP 128/93 07/23/23 14:20 Pulse Ox 97 07/23/23 14:20 FiO2 Intake & Output 07/22/23 07/23/23 07/23/23 19:59 06:59 18:59 Other: Voiding Method Toilet # Voids - Labs CBC & Chem 7: 07/20/23 01:15 07/21/23 10:07 Assessment and Plan Time with Patient: Less than 30
[2023-07-23] MEDS: ACETAMINOPHEN TAB 325 MG TAB PO PRN (18:10)
[2023-07-23] MEDS: traZODone HCL 100 MG TAB PO SCH (22:01)
[2023-07-23] MEDS: CLONIDINE HCL 0.1 MG PO SCH (22:01)
[2023-07-24] MEDS: ENOXAPARIN 40 MG/0.4 ML SYRINGE SQ SCH (08:05)
[2023-07-24] MEDS: busPIRone HCl 10 MG TAB PO SCH ×2 (08:05→15:53)
[2023-07-24] MEDS: FLUoxetine HCL 20 MG CAP PO SCH (08:05)
[2023-07-24] MEDS: lamoTRIgine 25 MG TAB PO SCH ×2 (08:06→19:54)
[2023-07-24] MEDS: QUEtiapine 200 MG TAB PO SCH ×2 (08:08→19:54)
--- NOTE | 2023-07-24 09:07 | CDI ---
Documentation Clarification Form Date: 07/24/2023 08:24:00 AM From: Cuca Hidalgo RN Phone: [phone] Admit Date: 07/20/2023 04:19:00 AM Patient Name: Zia Marie Visit Number: [id number] Discharge Date: ATTENTION: The Clinical Documentation Specialists (CDI) and [facility] Coding Staff appreciate your assistance in clarifying documentation. Please respond to the clarification below the line at the bottom and electronically sign. The CDI & [facility] Coding staff will review the response and follow-up if needed. Please note: Queries are made part of the Legal Health Record. If you have any questions, please contact the author of this message via ITS. Dr. Giles MD Your patient has the documented symptom of Altered Mental Status 07/20, H&P. Additional clarification regarding the etiology/cause of this symptom is requested. History/Risk Factors: 43-year-old male presents to the ED with feeling confused, altered mental state and several falls. Last admission 07/08 for Antlers toxicity. The patient was taken off of Antlers and is presently on Depakote, Seroquel, Buspirone Fluoxetine. Medical history: Schizoaffective disorder and PTSD. 07/20, H&P. Clinical Indicators: H&P, 07/20: Altered mental status, unstable gait: Secondary to side effects from psychiatric medications. Labs 07/20: NA 133; AST 104; ALT 61; Toxicology Tricyclic antidepressant, benzodiazepines and THC detected. CXR 07/20: Minimal linear atelectasis in the right mid lung. CT Brain 07/20:2.3cm well defined cystic lesion in the anterior midline hard palate. No evidence of acute intracranial abnormality or skull fracture. Treatment: 07/20 07/22 0.9ns IV 75cc/hr, 07/20 Discontinued Depakote. Please clarify the etiology of the symptom of Altered Mental Status: [ x ] Toxic Metabolic Encephalopathy due to Psychiatric medications. [ ] Other condition (please specify) [ ] Unable to determine (Template Last Revised: October 2020) MTDD
[2023-07-24] MEDS: ACETAMINOPHEN TAB 325 MG TAB PO PRN ×2 (09:14→19:53)
--- NOTE | 2023-07-24 09:22 | CDI ---
Documentation Clarification Form Date: 07/24/2023 09:10:52 AM From: Cuca Hidalgo RN CCDS Phone: [phone] Admit Date: 07/20/2023 04:19:00 AM Patient Name: Zia Marie Visit Number: [id number] Discharge Date: ATTENTION: The Clinical Documentation Specialists (CDI) and [facility] Coding Staff appreciate your assistance in clarifying documentation. Please respond to the clarification below the line at the bottom and electronically sign. The CDI & [facility] Coding staff will review the response and follow-up if needed. Please note: Queries are made part of the Legal Health Record. If you have any questions, please contact the author of this message via ITS. Dr. Ralph Skaggs Your patient has a sodium level of 133, 07/20. Please clarify diagnosis and/or clinical significance related to this lab value. History/Risk Factors: 43-year-old male presents to the ED with feeling confused, altered mental state and several falls. Last admission 07/08 for Galatia toxicity. The patient was taken off of Gal[place]ia and is presently on Depakote, Seroquel, Buspirone,Fluoxetine. Medical history: Schizoaffective disorder and PTSD. 07/20, H&P. Clinical indicators: H&P, 07/20: Hyponatremia can be secondary to Depakote induced SIADH or slight dehydration improved with IV Fluids. Lab, Sodium: 07/20 133; 07/21 136 BUN: 07/20 13; 07/21 10 Treatment:07/20 0.9ns 500cc IV bolus; 07/20 07/22 0.9ns 75cc/hr IV; 07/20 Discontinued Depakote Is there an additional diagnosis and/or clinical significance related to the above lab result/information? [ ] Hyponatremia [ x] SIADH [ ] Other condition, please specify [ ] Unable to determine (Template Last Revised: November 2020) already dictated in the note MTDD
--- NOTE | 2023-07-24 14:02 | P.PN ---
Progress Note - Text Progress Note Date: 07/24/23 Interval history: Patient was seen today in his room for psychiatric follow-up. Patient was sit ting drinking coffee with his mother and allowed his mother to be in the room while we spoke. Patient claims that he is feeling a lot better today. He claims that he feels medications have been helping him. He states that he is still having a bit of issues with sleep and claims that he's been having nightmares on and off the past several nights which have been causing him to wake up. He was requesting that his trazodone increased. We spoke about trying prazosin at nighttime and the advantages of that with regards to nightmares and he was okay to try it. He did request other medication changes. We spoke about side effects of the medications and right answer questions and discussed the treatment. He states that his mood and anxiety even improving. Claims that his appetite is improving. At this time is denying any suicidal or homicidal ideations intent or plan. Denying any auditory or visual hallucinations. MENTAL STATUS EXAM: General Appearance: Patient appears to be thin, unshaven, stated age is alert, more cooperative today. Patient appears to have fair hygiene and grooming wearing hospital gown with improved eye contact. Behavior: Patient is calmly lying in bed without any agitated behavior. More directable today. Speech: Patient's speech is fluent and nonpressured. Mood/Affect: Patient reports their mood is "good", affect is congruent Suicidality/Homicidality: Patient denies having any suicidal or homicidal ideation intent or plan. Perceptions: Patient denies any visual hallucinations and denies any auditory hallucinations Though content/process: There is no evidence of any delusional thought content and thought process is linear and goal-directed. Memory and concentration: AOX2-3, does not know todays date however does know the month and year, fair attention span. Can spell "WORLD" backwards Judgment and insight: Improving mildly IMPRESSIONS: schizoaffective disorder possible medication adverse effect cannabis use disorder nicotine dependence PLAN: -At this time patient DOES NOT meet criteria for inpatient psychiatric admission -Delirium precautions recommended with patient including - avoiding use of narco tics and [employer] sedatives, limit anticholinergic medications when possible, frequent re-orientation, minimize use of restraints, open window shades during the day and close them at night -Would recommend the following medication changes/additions: d/c depakote, increase Lamictal 50 mg twice a day for mood stabilization, we spoke about the possibility of a rash and to seek urgent medical attention if this dose occur. continue with prozac and decreased clonidine to 0.1 mg daily for irritability/ptsd sx, added prazosin 1 mg qhs for nightmares. continue seroquel 600 mg qhs + 200 mg qhs for mood stabilization. increase trazodone 150 mg qhs for insomnia/mood. change buspar to 20 mg at 0900, 1600 for anxiety. -will attempt to adjust medications for today to ensure better control of sx and hopeful for sign off and discharge tomorrow if inproves and does well overnight -psychiatry will follow up with patient tomorrow and likely sign off then if he is improved. -spoke with nurse about recommendations. -Please contact with any questions.
--- NOTE | 2023-07-24 17:52 | P.PN ---
Subjective Progress Note Date: 07/24/23 Patient evaluated today up ambulating around the room. He reports mild generalized pain and bruising from frequent falls at home. Overall though he is feeling better. No hallucinations. Mentation improved. He is pending admission to IP psychiatry whether at [facility] or outside facility no beds available until atleast monday. 07/24/2023 Psychiatry has re-evaluated the patient today. [place] patient no longer required IP treatment and recommending to monitor overnight 1 more night and likely can DC home tomorrow. Patient has been up ambulating around the room with out difficulty. Review of Systems Constitutional: Denied any fatigue denied any fever. Cardio vascular: denied any chest pain, palpitations Gastrointestinal: denied any nausea, vomiting, diarrhea Pulmonary: Denied any shortness of breath cough Neurologic denied any new focal deficits All inpatient medications were reviewed and appropriate changes in these medications as dictated in the interval history and assessment and plan. PHYSICAL EXAMINATION: GENERAL: The patient is alert and oriented x3, not in any acute distress. Well d eveloped, well nourished. HEENT: Pupils are round and equally reacting to light. EOMI. No scleral icterus. No conjunctival pallor. Normocephalic, atraumatic. No pharyngeal erythema. No thyromegaly. CARDIOVASCULAR: S1 and S2 present. No murmurs, rubs, or gallops. PULMONARY: Chest is clear to auscultation, no wheezing or crackles. ABDOMEN: Soft, nontender, nondistended, normoactive bowel sounds. No palpable organomegaly. MUSCULOSKELETAL: No joint swelling or deformity. EXTREMITIES: No cyanosis, clubbing, or pedal edema. NEUROLOGICAL: Gross neurological examination did not reveal any focal deficits. SKIN: No rashes. Assessment -Altered mental status unstable gait: from toxic metabolic encephalopathy; secondary to side effects from psychiatric medications patient had recent medication changes outpatient -Fall at home secondary to above -Hyponatremia can be secondary to Depakote-induced SIADH or slight dehydration improved with IV fluids -Schizoaffective disorder -Generalized weakness -Marijuana use: Counseling was provided. Patient uses this for anxiety and per patient this only thing that helps him more than anything for anxiety. -Full Code Plan Psychiatry has re-evaluated the patient and felt no longer needed IP psych treatment and will be monitored overnight and likely can DC home tomorrow. The impression and plan of care has been dictated by Roxana Joaquin, Nurse Practitioner as directed. Dr. Giles MD I have performed a history and physical examination and medical decision making of this patient, discussed the same with the dictator, and agree with the dictators assessment and plan as written, documented as a scribe. Based on total visit time, I have performed more than 50% of this visit. Objective - Vital Signs Vital signs: Vital Signs Temp 97.7 F 07/24/23 14:06 Pulse 100 07/24/23 14:06 Resp 14 07/24/23 14:06 BP 138/83 07/24/23 14:06 Pulse Ox 96 07/24/23 14:06 FiO2 Intake & Output 07/23/23 07/24/23 07/24/23 18:59 06:59 18:59 Other: Voiding Method Toilet Toilet # Voids 4 0 - Labs CBC & Chem 7: 07/20/23 01:15 07/21/23 10:07 Assessment and Plan Time with Patient: Less than 30
[2023-07-24] MEDS ORDERED: PRAZOSIN 1 MG CAP PO SCH (21:00)
[2023-07-24] MEDS ORDERED: traZODone HCL 50 MG TAB PO SCH (21:00)
[2023-07-25] MEDS: busPIRone HCl 10 MG TAB PO SCH (08:22)
[2023-07-25] MEDS: FLUoxetine HCL 20 MG CAP PO SCH (08:23)
[2023-07-25] MEDS: lamoTRIgine 25 MG TAB PO SCH (08:23)
[2023-07-25] MEDS: QUEtiapine 200 MG TAB PO SCH (08:24)
[2023-07-25] MEDS: ENOXAPARIN 40 MG/0.4 ML SYRINGE SQ SCH (08:25)
[2023-07-25] MEDS ORDERED: cloNIDine HCL 0.1 MG TAB PO SCH (09:00)
[2023-07-25 09:01] VITALS: BP 139/91; PULSE 66; RESP 14; TEMP 98.1
--- NOTE | 2023-07-25 14:39 | P.PN ---
Progress Note - Text Progress Note Date: 07/25/23 Interval history: Patient was seen today in his room for psychiatric follow-up. Patient was sit ting with his mother. He was fully dressed in street clothing. He claims that he is doing a lot better today with the medications. He claims that he has an appointment with his provider at [facility] tomorrow. His mother asked several questions about medications and the dosing of it. We spoke about compliance and also cutting back on marijuana which she will try to do once he is discharged. He appeared to be more future oriented, improvement in his affect and also his mood and anxiety. Claims that he was able to sleep much better last night, denies having any nightmares. No changes in his appe tite. Denying any side effects at this time. At this time is denying any suicidal or homicidal ideations intent or plan. Denying any auditory or visual hallucinations. MENTAL STATUS EXAM: General Appearance: Patient appears to be thin, unshaven, stated age is alert, more cooperative today. Patient appears to have fair hygiene and grooming wearing hospital gown with improved eye contact. Behavior: Patient is calmly lying in bed without any agitated behavior. More directable today. Speech: Patient's speech is fluent and nonpressured. Mood/Affect: Patient reports their mood is "good", affect is congruent and improving Suicidality/Homicidality: Patient denies having any suicidal or homicidal ideation intent or plan. Perceptions: Patient denies any visual hallucinations and denies any auditory hallucinations Though content/process: There is no evidence of any delusional thought content and thought process is linear and goal-directed. Future oriented today. Memory and concentration: AOX2-3, improved attention span. Judgment and insight: Improving mildly IMPRESSIONS: schizoaffective disorder possible medication adverse effect cannabis use disorder nicotine dependence PLAN: -At this time patient DOES NOT meet criteria for inpatient psychiatric admission -Delirium precautions recommended with patient including - avoiding use of narcotics and [employer]AT [employer] sedatives, limit anticholinergic medications when possible, frequent re-orientation, minimize use of restraints, open window shades during the day and close them at night -Would recommend the following medication changes/additions: Continue with Lamictal 50 mg twice a day for mood stabilization, we spoke about the possibility of a rash and to seek urgent medical attention if this dose occur. continue with prozac and clonidine 0.1 mg daily for irritability/ptsd sx, prazosin 1 mg qhs for nightmares. continue seroquel 600 mg qhs + 200 mg qhs for mood stabilization. trazodone 150 mg qhs for insomnia/mood. change buspar to 20 mg at 0900, 1600 for anxiety. -Patient will continue following up with his provider at [facility], next appointment is tomorrow. -At this time Psychiatry will sign off. -spoke with nurse about recommendations. -Please contact with any questions.
--- NOTE | 2023-07-27 15:40 | P.DS ---
Providers Date of admission: 07/20/23 04:19 Attending physician: Leobardo Deshpande Consults: 07/20/23 04:18 Consult Physician Stat Consulting Provider: hAsan Cannon Reason/Comments: delirium, recent med changes Do you want consulting provider notified?: Already Contacted Primary care physician: Stated None Hospital Course: Final Diagnosis -Altered mental status unstable gait: from toxic metabolic encephalopathy; secondary to side effects from psychiatric medications patient had recent medication changes outpatient - resolved. -Fall at home secondary to above -Hyponatremia can be secondary to Depakote-induced SIADH or slight dehydration improved with IV fluids -Schizoaffective disorder -Generalized weakness -Marijuana use: Counseling was provided. Patient uses this for anxiety and per patient this only thing that helps him more than anything for anxiety. -Full Code Discharge Disposition Patient is stable for discharge home. Has been cleared by psychiatry and no longer requires in patient psychiatric treatment and evaluation. Medications have been adjusted and patient has an appt with his [facility] probate paralegal tomorrow 07/26/23. Hospital Course 42-year-old male came in with complaints of altered mental status and multiple falls patient has been unstable. Patient has history of a schizoaffective disorder, anxiety and depression, possible history of PTSD. Patient was extensively evaluated during last hospitalization was treated for colitis completed his antibiotic therapy with Augmentin yesterday. Patient does use marijuana as well and patient is on multiple medications that can cause unstable gait and the confusion. The treated for lithium toxicity during last hospitalization and patient is presently on Seroquel buspirone fluoxetine Depakote. CT of the head did not show any significant abnormality. Patient was complaining of constipation and some abdominal discomfort,which was relieved with miralax he did have a BM. He had hyponatremia on admission with sodium of 133, as well as elevated AST/ALT. Did improve with IV hydration. Liver enzymes are normal now. Sodium 136. Urinalysis is negative. UDS showings TCA's benzodiazepines and marijuana. Patient is evaluated today with his mother at the bedside. He is alert x 3. He was initially recommended for IP psychiatric evaluation as recommended by psychiatry. Medications have been adjusted. His lungs are clear S1 S2 auscultated, abdomen is soft and nontender. Focal neurological exam negative. He has some generalized weakness, has been up ambulating. Cleared medically. He improved while waiting for psych bed and after reevaluation he no longer requires IP treatment and can be discharged home to follow up with his usual [facility] psychiatrist outpatient. Please see medication reconciliation for a list of current medication. Thank you for allowing us to participate in the care of this patient. The impression and plan of care has been dictated by Roxana Joaquin, Nurse Practitioner as directed. Dr. Giles MD I have performed a history and physical examination and medical decision making of this patient, discussed the same with the dictator, and agree with the dictators assessment and plan as written, documented as a scribe. Based on total visit time, I have performed more than 50% of this visit. Patient Condition at Discharge: Fair Plan - Discharge Summary Discharge Rx Participant: No New Discharge Prescriptions: New traZODone HCL [Desyrel] 150 mg PO HS tab Prazosin [Minipress] 1 mg PO HS #30 cap cloNIDine HCL [Catapres] 0.1 mg PO DAILY #30 tab polyethylene glycoL 3350 [Miralax] 17 gm PO DAILY PRN packet PRN Reason: Constipation lamoTRIgine [LaMICtal] 50 mg PO BID #20 tab QUEtiapine FUMARATE [SEROquel] 200 mg PO DAILY #10 tablet Continue QUEtiapine [SEROquel] 600 mg PO HS 30 Days #90 tab FLUoxetine HCL [PROzac] 80 mg PO DAILY busPIRone HCL 20 mg PO TID Discontinued cloNIDine HCL [Kapvay] 0.2 mg PO HS Divalproex ER [Depakote ER] 1,000 mg PO HS 30 Days #60 tab QUEtiapine [SEROquel] 50 mg PO DAILY PRN PRN Reason: acute anxiety cloNIDine HCL [Catapres] 0.1 mg PO DAILY PRN PRN Reason: acute anxiety traZODone HCL [Desyrel] 100 mg PO HS PRN 30 Days #30 tab PRN Reason: Insomnia traZODone HCL [Desyrel] 100 mg PO PRN PRN Reason: Insomnia Discharge Medication List FLUoxetine HCL [PROzac] 80 mg PO DAILY 07/08/23 [History] busPIRone HCL 20 mg PO TID 07/08/23 [History] QUEtiapine [SEROquel] 600 mg PO HS 30 Days #90 tab 07/11/23 [Rx] polyethylene glycoL 3350 [Miralax] 17 gm PO DAILY PRN packet 07/21/23 [Rx] Prazosin [Minipress] 1 mg PO HS #30 cap 07/25/23 [Rx] QUEtiapine FUMARATE [SEROquel] 200 mg PO DAILY #10 tablet 07/25/23 [Rx] cloNIDine HCL [Catapres] 0.1 mg PO DAILY #30 tab 07/25/23 [Rx] lamoTRIgine [LaMICtal] 50 mg PO BID #20 tab 07/25/23 [Rx] traZODone HCL [Desyrel] 150 mg PO HS tab 07/25/23 [Rx] Follow up Appointment(s)/Referral(s): None,Stated [Primary Care Provider] - 1-2 days (Please call a primary care provider for follow-up appointment.) Activity/Diet/Wound Care/Special Instructions: Keep your appointment with your psychiatrist at [facility] for tomorrow 07/26/2023. The kapvay (clonidine) that you were taking at home was 0.2 mg HS we have changed this to clonidine 0.1 mg daily (smaller dose) and kapvay is showing as non formulary meaning your insurance doesn't cover it. That is why I have sent in the clonidine for you as a new script. Discharge/Stand Alone Forms: Who Do I Call?, Community Resources, Outpatient Counseling Discharge Disposition: HOME SELF-CARE
== END 2023-07-25 14:26 | disposition home or self-care (01) ==
LOC: EC 23:55 → 4SSUR 07-20 04:19 → INTOOBSV 07-20 04:19 → 4SSUR 07-20 05:00 → UNDODISIN 07-25 14:26
PROVIDERS: ADMIT Hospitalist; ATTEND Hospitalist
DX: G92.8 Other toxic encephalopathy (principal); R29.6 Repeated falls; E22.2 Syndrome of inappropriate secretion of antidiuretic hormone; F41.9 Anxiety disorder, unspecified; F25.9 Schizoaffective disorder, unspecified; F31.9 Bipolar disorder, unspecified; R53.1 Weakness; F12.90 Cannabis use, unspecified, uncomplicated; F17.290 Nicotine dependence, other tobacco product, uncomplicated; Z20.822 Contact with and (suspected) exposure to COVID-19; Z56.0 Unemployment, unspecified; Z79.899 Other long term (current) drug therapy; Z88.1 Allergy status to other antibiotic agents
CPT/HCPCS: 96361 ×5; 96360; 99285; 36415; 93005; 80164; 80053 ×2; 84443; 82140; 80178; 84484; 85025; 85610; 85730; 81003; 80306; 80320; 87635; 71046; 72125; 70450; G0378 ×6

== ENCOUNTER 2025-03-17 13:41 | Emergency (ER) | payer OTHER ==
[2025-03-17 13:47] VITALS: RESP 18; TEMP 98.2
--- NOTE | 2025-03-17 14:09 | ED ---
General Adult HPI - General Chief complaint: Syncope Stated complaint: near Syncope Time Seen by Provider: 03/17/25 13:52 Source: patient, EMS, RN notes reviewed Mode of arrival: EMS Limitations: no limitations - History of Present Illness Initial comments: Patient is a 45-year-old male present to the emergency department for near syncopal episode. Incident occurred prior to arrival. Patient was walking and felt his legs feel weak and he fell. Patient states they feel back to normal. Patient admits he has not been drinking as much as he should recently. Patient questions if he had a seizure a couple of weeks ago. Patient denies any seizure today. Patient believes he did hit his head. No headache. No weakness at this time. No confusion. Patient feels he has returned to normal. No chest pain or dyspnea. - Related Data Home Medications Medication Instructions Recorded Confirmed FLUoxetine HCL [PROzac] 80 mg PO DAILY 07/08/23 07/20/23 busPIRone HCL 20 mg PO TID 07/08/23 07/20/23 Previous Rx's Medication Instructions Recorded QUEtiapine [SEROquel] 600 mg PO HS 30 Days #90 tab 07/11/23 polyethylene glycoL 3350 [Miralax] 17 gm PO DAILY PRN packet 07/21/23 Prazosin [Minipress] 1 mg PO HS #30 cap 07/25/23 QUEtiapine FUMARATE [SEROquel] 200 mg PO DAILY #10 tablet 07/25/23 cloNIDine HCL [Catapres] 0.1 mg PO DAILY #30 tab 07/25/23 lamoTRIgine [LaMICtal] 50 mg PO BID #20 tab 07/25/23 traZODone HCL [Desyrel] 150 mg PO HS tab 07/25/23 Allergies Allergy/AdvReac Type Severity Reaction Status Date / Time erythromycin base AdvReac Nausea & Verified 07/20/23 08:38 [From Erythrocin] Vomiting Review of Systems ROS Statement: Those systems with pertinent positive or pertinent negative responses have been documented in the HPI. ROS Other: All systems not noted in ROS Statement are negative. Constitutional: Denies: fever Eyes: Denies: eye pain ENT: Denies: ear pain Respiratory: Denies: cough, dyspnea Cardiovascular: Denies: chest pain Endocrine: Denies: fatigue Gastrointestinal: Denies: abdominal pain Musculoskeletal: Denies: back pain Neurological: Reports: as per HPI. Denies: headache, weakness, confusion Past Medical History Past Medical History: Seizure Disorder History of Any Multi-Drug Resistant Organisms: None Reported Past Surgical History: Tonsillectomy Past Anesthesia/Blood Transfusion Reactions: No Reported Reaction Past Psychological History: Anxiety, Bipolar, Depression, PTSD Smoking Status: Former smoker, Vaper Past Alcohol Use History: None Reported Past Drug Use History: Marijuana General Exam Limitations: no limitations General appearance: alert, in no apparent distress Head exam: Present: atraumatic Eye exam: Present: normal appearance, PERRL, EOMI ENT exam: Present: normal oropharynx Neck exam: Present: normal inspection. Absent: tenderness Respiratory exam: Present: normal lung sounds bilaterally Cardiovascular Exam: Present: regular rate, normal rhythm Expanded Peripheral pulses: 2+: Radial (R), Radial (L), Posterior Tibialis (R), Posterior Tibialis (L) GI/Abdominal exam: Present: soft. Absent: tenderness, pulsatile mass Extremities exam: Present: normal inspection. Absent: pedal edema, calf tenderness Neurological exam: Present: alert, oriented X3, CN II-XII intact. Absent: motor sensory deficit Expanded Neurological exam: Present: protecting the airway Patient oriented to: Present: person, place, time Speech: Present: fluid speech Cranial nerves: EOM's Intact: Normal Sensory exam: Upper Extremity Light Touch: Normal, Lower Extremity Light Touch: Normal Motor strength exam: RUE: 5, LUE: 5, RLE: 5, LLE: 5 Eye Response: (4) open spontaneously Motor Response: (6) obeys commands Verbal Response: (5) oriented Psychiatric exam: Present: normal affect, normal mood Skin exam: Present: normal color Course Vital Signs 03/17/25 13:44 Temperature 98.2 F Pulse Rate 96 Respiratory 18 Rate Blood Pressure 121/76 O2 Sat by Pulse 98 Oximetry EKG Findings - EKG Results: EKG: interpreted by ERMD, sinus rhythm, normal axis, normal QRS, normal ST/T Medical Decision Making - Medical Decision Making Was pt. sent in by a medical professional or institution (, PA, DIRECTOR DRUG SAFETY, urgent care, hospital, or assisted...) When possible be specific @ -No Did you speak to anyone other than the patient for history (EMS, parent, family, police, friend...)? What history was obtained from this source @ -No Did you review nursing and triage notes (agree or disagree)? Why? @ -I reviewed and agree with nursing and triage notes Were old charts reviewed (outside hosp., previous admission, EMS record, old EKG, old radiological studies, urgent care reports/EKG's, assisted records)? Report findings @ -No old charts were reviewed Differential Diagnosis (chest pain, altered mental status, abdominal pain women, abdominal pain men, vaginal bleeding, weakness, fever, dyspnea, syncope, headache, dizziness, GI bleed, back pain, seizure, CVA, palpatations, mental health, musculoskeletal)? @ -Differential Syncope: Valvular disease, hypertrophic cardiomyopathy, pulmonary embolism, tamponade, tachycardia, bradycardia, GA, hypovolemia, hemorrhage, dissection, anemia, intracranial hemorrhage, seizure, hypoglycemia, carbon monoxide poisoning, this is not meant to be an all-inclusive list. EKG interpreted by me (3pts min.). @ -As above X-rays interpreted by me (1pt min.). @ -Chest x-ray does not reveal acute abnormality CT interpreted by me (1pt min.). @ -CT of the brain does not reveal acute intercranial abnormality. Cyst near the hard palate. U/S interpreted by me (1pt. min.). @ -None done What testing was considered but not performed or refused? (CT, X-rays, U/S, labs)? Why? @ -None What meds were considered but not given or refused? Why? @ -None Did you discuss the management of the patient with other professionals (professionals i.e. , PA, DIRECTOR DRUG SAFETY, lab, RT, psych nurse, social contact worker, lan support specialist, teacher, science and operations officer, protective services case worker)? Give summary @ -No Was smoking cessation discussed for >3mins.? @ -No Was critical care preformed (if so, how long)? @ -No Were there social determinants of health that impacted care today? How? (Homelessness, low income, unemployed, alcoholism, drug addiction, transportation, low edu. Level, literacy, decrease access to med. care, [place] [facility], rehab)? @ -No Was there de-escalation of care discussed even if they declined (Discuss DNR or withdrawal of care, Hospice)? DNR status @ -No What co-morbidities impacted this encounter? (DM, HTN, Smoking, COPD, CAD, Cancer, CVA, ARF, Chemo, Hep., AIDS, mental health diagnosis, sleep apnea, morbid obesity)? @ -None Was patient admitted / discharged? Hospital course, mention meds given and route, prescriptions, significant lab abnormalities, going to OR and other pertinent info. @ -Patient presents with legs feeling wobbly and near syncopal event. Patient has been symptom-free since then and remained symptom-free. Patient is able to ambulate without difficulty. Patient is updated on results and need for follow- up. Undiagnosed new problem with uncertain prognosis? @ -No Drug Therapy requiring intensive monitoring for toxicity (Heparin, Nitro, Insulin, Cardizem)? @ -No Were any procedures done? @ -No Diagnosis/symptom? @ -Near syncope Acute, or Chronic, or Acute on Chronic? @ -Acute Uncomplicated (without systemic symptoms) or Complicated (systemic symptoms)? @ -Default Side effects of treatment? @ -No Exacerbation, Progression, or Severe Exacerbation? @ -No Poses a threat to life or bodily function? How? (Chest pain, USA, GA, pneumonia, PE, COPD, DKA, ARF, appy, cholecystitis, CVA, Diverticulitis, Homicidal, Suicidal, threat to staff... and all critical care pts) @ -No - Lab Data Result diagrams: 03/17/25 14:24 03/17/25 14:24 Lab Results 03/17/25 03/17/25 03/17/25 Range/Units 14:24 14:24 14:24 WBC 12.29 H (4.50-10.00) 10*3/uL RBC 3.93 L (4.40-5.60) 10*6/uL Hgb 12.9 L (13.0-17.0) g/dL Hct 37.0 L (39.6-50.0) % MCV 94.1 (80.0-97.0) fL MCH 32.8 H (27.0-32.0) pg MCHC 34.9 (32.0-37.0) g/dL Plt Count 257 (140-440) 10*3/uL MPV 9.6 (9.5-12.2) fL Immature Gran % (Auto) 0.5 % Neutrophils % 69.1 % Lymphocytes % 18.9 % Monocytes % 4.9 % Eosinophils % 5.9 % Basophils % 0.7 % Immature Gran # 0.06 H (0.00-0.04) 10*3/uL Neutrophils # 8.49 H (1.80-7.70) 10*3/uL Lymphocytes # 2.32 (0.90-5.00) 10*3/uL Monocytes # 0.60 (0.20-1.00) 10*3/uL Eosinophils # 0.73 H (0.04-0.35) 10*3/uL Basophils # 0.09 (0.00-0.10) 10*3/uL PT 10.7 (10.0-12.5) sec INR 1.0 (<1.2) APTT 22.8 (22.0-30.0) sec D-Dimer 0.28 (<0.60) mg/L FEU Sodium 139 (137-145) mmol/L Potassium 4.0 (3.5-5.1) mmol/L Chloride 107 (98-107) mmol/L Carbon Dioxide 20 L (22-30) mmol/L Anion Gap 12 mmol/L BUN 10 (9-20) mg/dL Creatinine 1.08 (0.66-1.25) mg/dL Est GFR (CKD-EPI)AfAm >90 (>60 ml/min/1.73 sqM) Est GFR (CKD-EPI)NonAf 81 (>60 ml/min/1.73 sqM) Glucose 119 H (74-99) mg/dL Calcium 9.1 (8.4-10.2) mg/dL Magnesium 1.8 (1.6-2.3) mg/dL Total Bilirubin 0.3 (0.2-1.3) mg/dL AST 25 (17-59) U/L ALT 18 (4-49) U/L Alkaline Phosphatase 75 (38-126) U/L Troponin I (0.000-0.034) ng/mL Total Protein 6.0 L (6.3-8.2) g/dL Albumin 3.8 (3.5-5.0) g/dL [place] 0.9 mmol/L 03/17/25 Range/Units 14:24 WBC (4.50-10.00) 10*3/uL RBC (4.40-5.60) 10*6/uL Hgb (13.0-17.0) g/dL Hct (39.6-50.0) % MCV (80.0-97.0) fL MCH (27.0-32.0) pg MCHC (32.0-37.0) g/dL Plt Count (140-440) 10*3/uL MPV (9.5-12.2) fL Immature Gran % (Auto) % Neutrophils % % Lymphocytes % % Monocytes % % Eosinophils % % Basophils % % Immature Gran # (0.00-0.04) 10*3/uL Neutrophils # (1.80-7.70) 10*3/uL Lymphocytes # (0.90-5.00) 10*3/uL Monocytes # (0.20-1.00) 10*3/uL Eosinophils # (0.04-0.35) 10*3/uL Basophils # (0.00-0.10) 10*3/uL PT (10.0-12.5) sec INR (<1.2) APTT (22.0-30.0) sec D-Dimer (<0.60) mg/L FEU Sodium (137-145) mmol/L Potassium (3.5-5.1) mmol/L Chloride (98-107) mmol/L Carbon Dioxide (22-30) mmol/L Anion Gap mmol/L BUN (9-20) mg/dL Creatinine (0.66-1.25) mg/dL Est GFR (CKD-EPI)AfAm (>60 ml/min/1.73 sqM) Est GFR (CKD-EPI)NonAf (>60 ml/min/1.73 sqM) Glucose (74-99) mg/dL Calcium (8.4-10.2) mg/dL Magnesium (1.6-2.3) mg/dL Total Bilirubin (0.2-1.3) mg/dL AST (17-59) U/L ALT (4-49) U/L Alkaline Phosphatase (38-126) U/L Troponin I <0.012 (0.000-0.034) ng/mL Total Protein (6.3-8.2) g/dL Albumin (3.5-5.0) g/dL [place] mmol/L Disposition Clinical Impression: Near syncope Disposition: HOME SELF-CARE Condition: Stable Instructions (If sedation given, give patient instructions): Near Syncope (ED) Additional Instructions: Please do follow-up with your primary care physician in the next couple days for recheck, list provided. Consider neurology evaluation. Return for passing out, increased seizures, weakness or confusion, worsening symptoms or other concerns. Is patient prescribed a controlled substance at d/c from ED?: No Referrals: None,Stated [Primary Care Provider] - 1-2 days Forms: Area PCPs Time of Disposition: 16:20
[2025-03-17 14:36] LABS: Basophils # (A) 0.09 10*3/uL (0.00-0.10); Basophils % (A) 0.7 %; Eosinophils # (A) 0.73 10*3/uL (0.04-0.35); Eosinophils % (A) 5.9 %; HGB 12.9 g/dL (13.0-17.0); Lymphocytes # (A) 2.32 10*3/uL (0.90-5.00); Lymphocytes % (A) 18.9 %; MCH 32.8 pg (27.0-32.0); MCHC 34.9 g/dL (32.0-37.0); MCV 94.1 fL (80.0-97.0); Mean Platelet Volume 9.6 fL (9.5-12.2); Monocytes % (A) 4.9 %; Neutrophils # (A) 8.49 10*3/uL (1.80-7.70); Neutrophils % (A) 69.1 %; Platelet Count 257 10*3/uL (140-440); RBC 3.93 10*6/uL (4.40-5.60); RDW 12.3 % (11.5-14.5); WBC 12.29 10*3/uL (4.50-10.00)
[2025-03-17 14:43] LABS: ALT 18 U/L (4-49); AST 25 U/L (17-59); African American GFR (CKD) >90 (>60 ml/min/1.73 sqM); Albumin 3.8 g/dL (3.5-5.0); Alkaline Phosphatase 75 U/L (38-126); Anion Gap 12 mmol/L; Blood Urea Nitrogen 10 mg/dL (9-20); Calcium 9.1 mg/dL (8.4-10.2); Carbon Dioxide 20 mmol/L (22-30); Chloride 107 mmol/L (98-107); Glucose 119 mg/dL (74-99); Lithium 0.9 mmol/L; Magnesium 1.8 mg/dL (1.6-2.3); Non-African American GFR(CKD) 81 (>60 ml/min/1.73 sqM); Sodium 139 mmol/L (137-145); Total Bilirubin 0.3 mg/dL (0.2-1.3)
[2025-03-17] MEDS: SODIUM CHLORIDE 0.9% 1,000 ML IV STA (14:45)
[2025-03-17] MEDS: DIPH,PERTUS(ACELL)TETVAC-LF 0.5 ML VIAL IM ONE (14:46)
--- NOTE | 2025-03-17 14:57 | XR ---
EXAMINATION TYPE: XR chest 2V DATE OF EXAM: 03/17/2025 2:34 PM COMPARISON: Chest radiographs from 07/20/2023. CLINICAL INDICATION: Male, 45 years old with history of syncope; [facility] TECHNIQUE: XR chest 2V Frontal and lateral views of the chest. FINDINGS: Lungs/Pleura: There is no evidence of pleural effusion, focal consolidation, or pneumothorax. Pulmonary vascularity: Unremarkable. Heart/mediastinum: Cardiomediastinal silhouette is unremarkable. Musculoskeletal: No acute osseous pathology. IMPRESSION: 1. No acute cardiopulmonary disease process. 2. COPD changes. [facility], , 03/17/2025 2:55 PM
[2025-03-17 14:59] LABS: Partial Thromboplastin Time 22.8 sec (22.0-30.0); Prothrombin Time 10.7 sec (10.0-12.5)
--- NOTE | 2025-03-17 15:50 | CT ---
EXAMINATION TYPE: CT brain wo con CT DLP: 1143.3 mGycm, Automated exposure control for dose reduction was used. DATE OF EXAM: 03/17/2025 3:40 PM COMPARISON: CT brain C-spine 07/20/2023, CT brain 07/08/2023 CLINICAL INDICATION:Male, 45 years old with history of syncope, syncope TECHNIQUE: Brain: Multiple axial CT images of the brain were obtained without IV contrast. . Coronal and sagitta l reformats reviewed. FINDINGS: Brain: Extra-axial spaces: No abnormal extra-axial fluid collections. Ventricular system: Within normal limits Cerebral parenchyma: No acute intraparenchymal hemorrhage or mass effect. The cordova-white junction is well differentiated. Cerebellum: Unremarkable. Mass effect: No evidence of midline shift. Intracranial vasculature: unremarkable Soft tissues: Normal. Calvarium/osseous structures: No depressed skull fracture. Stable midline expanded cystic structure w ithin the hard palate measuring up to 2.4 cm. Paranasal sinuses and mastoid air cells: Clear Visualized orbits: Orbital contents are intact. IMPRESSION: 1. No acute intracranial process. 2. Stable cystic lesion within the anterior midline hard palate. Favored to represent a median palati ne cyst. [facility], , 03/17/2025 3:48 PM
[2025-03-17 16:35] VITALS: BP 118/66; PULSE 70
== END 2025-03-17 16:35 | disposition home or self-care (01) ==
LOC: EC 13:41
DX: R55 Syncope and collapse (principal); F17.290 Nicotine dependence, other tobacco product, uncomplicated; Z88.1 Allergy status to other antibiotic agents
CPT/HCPCS: 36415; 70450; 71046; 80053; 80178; 83735; 84484; 85025; 85379; 85610; 85730; 93005; 96360; 96361; 99285